=== PATIENT | female | born 1960 | race Caucasian/White ===

== ENCOUNTER 2019-07-29 11:16 | Observation (INO) | payer SELFPAY ==
[2019-07-28 10:00] VITALS: BMI 45.0
[2019-07-29] VITALS (18 sets, daily range): BP systolic 126–179; BP diastolic 69–98; PULSE 60–77; RESP 10–18; TEMP 36.2–36.8; O2SAT 93–100
--- NOTE | 2019-07-29 | XR_ITS ---
WS: [id number] INTRAOPERATIVE LATERAL CERVICAL SPINE HISTORY: Level check for ACDF COMPARISON: 07/29/2019 and 06/28/2019 Lateral radiograph obtained in the OR with a metallic marker indicating the C4-5 disc space, anterior . Patient is intubated. Soft tissue spacers are now present. XR/XR cervical spine 1V 19325 IMPRESSION: Intraoperative planning marker at C4-5 disc level.
--- NOTE | 2019-07-29 | XR_ITS ---
WS: [id number] INTRAOPERATIVE LATERAL CERVICAL SPINE HISTORY: LEVEL CHECK FOR OR COMPARISON: 2018 Lateral radiograph obtained in the OR with a metallic marker indicating the anterior neck at the C5 l evel. Patient is intubated. XR/XR cervical spine 1V 83364 IMPRESSION: Intraoperative planning marker at anterior C5 level.
[2019-07-29] MEDS: sodium chloride 0.9% 1,000 ML 30 ML IV (06:44)
[2019-07-29 06:54] LABS: Glucose Point of Care 129 mg/dL (70-110)
--- NOTE | 2019-07-29 08:50 | SUR.OPER ---
FLOSEAL 10ML INJECTED INJECTED IN C-SPINE WOUND LOT#[id number] EXP 05/27/2020
--- NOTE | 2019-07-29 09:05 | SUR.OPER ---
5931 PT FAMILY NOTIFIED OF PT STATUS ON FAMILY CELL PHONE
--- NOTE | 2019-07-29 10:42 | SUR.PHASEI ---
1033 PT ARRIVED TO PACU FROM OR VIA GURNEY, AIRWAY PATENT, RR EVEN/UNLABORED, SIMPLE MASK APPLIED, DRESSING CDI
--- NOTE | 2019-07-29 10:46 | XR_ITS ---
WS: [id number] Cervical spine, AP and lateral, 07/29/2019, 1059 hours. Clinical Data: postop Comparison: Operating room cervical spine, lateral view, 07/29/2019, 0828 hours. Findings: Patient has had an anterior cervical disc fusion at C5-C6 with an interbody fusion at C5-C6 . There is an old healed fracture of the lateral left clavicle. XR/XR cervical spine 2V* 11370 Impression: Anterior cervical disc fusion at C5-C6.
[2019-07-29] MEDS: lactated ringers 1,000 ML 90 ML IV (13:14)
--- NOTE | 2019-07-29 13:32 | PM.OP ---
Operative Report Post-Operative Note: Date of procedure: 07/29/19 Operative Report: Procedure: DATE OF PROCEDURE: 07/29/2019 DATE OF DICTATION: 07/29/2019 PREOPERATIVE DIAGNOSIS: Intervertebral disc disorder with myelopathy, midcervical region. POSTOPERATIVE DIAGNOSES: 1. Intervertebral disc disorder with myelopathy, midcervical region. 2. Instability of joint. PROCEDURES PERFORMED: 1. C5-C6 anterior cervical discectomy with osteophytectomy. 2. C5-C6 anterior cervical plate and screw fixation (Synthes Vectra system). 3. C5-C6 placement of intervertebral prosthetic device (ACIS ProTi Spacer). 4. C5-C6 anterior cervical fusion, utilizing morselized autograft obtained from the osteophytectomy portions of the procedure. SURGEON: Nando Whipple M.D. ANESTHESIA: General endotracheal. ESTIMATED BLOOD LOSS: 50 milliliters. INDICATIONS FOR PROCEDURES: The patient is a 59-year-old female with symptomatic, radiographically confirmed cervical disc/joint disease and associated neural impingement. Imaging studies demonstrated a dominant neural impingement site at C5-C6, with extension posterior to the C6 vertebral body. She had predominantly left-sided symptoms. Conservative treatment measures had not provided lasting relief. After review of the diagnostic and treatment options with the risks/potential benefits/rationale for each, the patient requested to proceed with surgical decompression/fusion/fixation. DESCRIPTION OF PROCEDURE: After routine preoperative evaluation and informed consent were obtained, the patient was taken to the Operating Room and positioned supine on the operating table. She was placed under general endotracheal anesthesia by Anesthesia personnel. She was fit in the [facility] tongs for the application of in-line cervical traction. A proposed left anterolateral neck transverse skin incision was marked with a sterile skin marker. Regional anatomy and intraoperative radiography were utilized for localization purposes. The area was scrubbed with Betadine and prepped with DuraPrep. Sterile towels and drapes were applied, and an Ioban surgical barrier was placed. The proposed incision site was infiltrated with 1% Xylocaine with Epinephrine. A skin incision was made and carried down into the subcutaneous tissues. The platysma was identified and divided in the direction of its fibers. A plane was dissected just medial to the carotid sheath and lateral to the midline esophagus and trachea. The prevertebral soft tissues were bluntly dissected free of the anterior margin of the cervical spine. Longus coli muscles were freed from their medial attachments, and deep self-retaining retractors were placed. Intraoperative radiography verified the desired surgical level. The C5-C6 interspace was then incised with a #11 blade. Discectomy was accomplished utilizing various curettes and pituitary rongeurs. Anterior marginal osteophytes were resected with Lempert and Kerrison rongeurs. Cartilaginous endplates were stripped free with curettes. Posterior marginal osteophytes were resected with the thin-foot plate Kerrison rongeurs. The medial aspects of the neural foramina were enlarged in a similar manner. Posterior longitudinal ligament was divided and resected as necessary to further the decompression. Prominent marginal osteophytes were noted on the left and, in particular, arising from the superior inferior aspect of the C6 vertebral body. Osteophyte resection was pursued utilizing the Kerrison rongeurs. Completion of the osteophytectomy required resection of the superior aspect of the C6 vertebral body with rongeurs and the Midas Jerardo high-speed drill with samantha cesar. At the completion of the decompression, no residual spinal cord impingement was identified upon probing with the right angle nerve hook. Decompression was felt to be adequate and the disc space was sized. A 10 millimeter ACIS ProTi Lordotic/Medium Spacer was chosen. The Spacer was packed with morselized autograft obtained from the osteophytectomy portions of the procedure. The Spacer was placed within the C5-C6 interspace while in-line cervical traction was applied via the Gomez-Wells tongs. Spacer placement was facilitated by use of the mallet and impaction tools. Once the Spacer was in good position, a Synthes Vectra plate of the desired size was chosen. The plate was secured to the C5 and C6 vertebral bodies with bilateral 4.5 mm x 14 mm self-drilling screws. Final screw tightening was performed, and the screws were noted to engage the locking mechanisms within the plate at each site. The construct was inspected and found to be in good position and secure. The wound was copiously irrigated with sterile saline and antibiotic irrigation. Hemostasis was ensured with the bipolar electrocautery. Wound closure was performed in multiple layers with 2-0 Vicryl Plus simple interrupted closure of the platysma and deep dermis as separate layers. Final skin closure was performed with 4-0 Vicryl Plus in a running subcuticular pattern. Steri-Strips were applied, and a sterile dressing was placed. The patient was released from the [facility] tong and fit in a [place] collar. She was extubated without incident. She was transferred onto the Recovery Room cart in the supine position. The patient tolerated the procedure well. COMPLICATIONS: There were no known complications. COUNTS: All sponge, needle, and instrument counts were correct at the completion of the procedure. Coding Level of Care Code Acute Diet Counselor for Guille Nolasco
--- NOTE | 2019-07-29 16:40 | PM.DCS ---
Discharge Providers Date of Admission: 07/29/19 11:16 Date of Discharge: 07/29/19 Attending Provider at Admission: Sharan Whipple Attending Provider at Discharge: Sharan Whipple Primary Care Provider: Jeannie Shrestha Diagnoses at Discharge Discharge Diagnosis (1) Intervertebral disc disorder of cervical region with myelopathy: Status: Acute (2) Status post cervical spinal fusion: Status: Acute Reason for Visit Reason for Visit: Reason For Visit: C5-C6 disc disease Hospital Course Hospital Course: Patient underwent a C5-C6 ACDFF on 07/29/2019. She tolerated the procedure well. She completed preoperative and postoperative intravenous antibiotic doses, and a physical therapy postoperative spine protocol. She was ambulatory, voiding, and tolerating diabetic diet prior to request discharge home on the afternoon of the day of surgery. Physical Exam Const: COMMON NORMALS: oriented x3 Neck/C-Spine: NECK IMAGES: 1. Surgical site Neuro: COMMON NORMALS: oriented x3 and no focal motor deficits GAIT: Yes normal gait Urinary Catheter Management^: Negrete Latex: Cath Placed During This Visit: no Discharge Data Data Completed and Pending: Completed Studies During Hospitalization Category Date Time Status XR cervical spine 1V 25066 Routine Exams 07/29/19 Completed XR cervical spine 1V 89097 Routine Exams 07/29/19 Completed XR cervical spine 2V* 93034 Routine Exams 07/29/19 10:46 Completed Pending at discharge Category Date Time Status Pathology: Surgic al [PTH] Routine Pth 07/29/19 10:16 Received Labs from last 24 hours 07/29/19 06:38 POC Glucose 129 Vitals: Last Vital Signs Temp 97.7 F 07/29/19 15:22 Pulse 68 07/29/19 15:22 Resp 18 07/29/19 15:22 BP 162/92 07/29/19 15:22 Pulse Ox 95 07/29/19 15:22 Discharge Plan Discharge Patient Disposition: Home, Self-Care Condition: Stable Prescriptions: [place] 7.5-325 mg tablet 1 tab PO Q6H PRN (Reason: pain) Qty: 30 RF: 0 Continued cetirizine 10 mg tablet 10 mg PO DAILY RF: 0 metoprolol tartrate 100 mg tablet 100 mg PO BID RF: 0 glipizide 10 mg tablet 10 mg PO DAILY RF: 0 simvastatin 10 mg tablet 10 mg PO BEDTIME RF: 0 lisinopril 10 mg tablet 10 mg PO DAILY RF: 0 hydrochlorothiazide 25 mg tablet 25 mg PO DAILY RF: 0 ferrous gluconate 324 mg (38 mg iron) tablet 324 mg PO DAILY RF: 0 Victoza 2-Damián 0.6 mg/0.1 mL (18 mg/3 mL) Pen Injector 1.8 mg SUBCUT DAILY RF: 0 Discharge Orders: Discharge Order (Routine); Ordered 07/29/19 Ordered By: Sharan Whipple Referrals: Sharan Whipple MD [Physician] - 08/10/19 11:30 am Discharge Diet: Usual diet Discharge Activity: Limit activity as instructed Activity Restrictions/Additional Instructions: Activity -Cervical fusion: Wear cervical collar 24 hours a day. Change as necessary for showering, shaving, or if it becomes soiled. -No lifting or reaching overhead. - No driving until office followup visit - No lifting/pushing/pulling over 10 pounds - Avoid twisting or bending - Walking is encouraged - Home exercise per physical therapist - You may engage in sexual intercourse at any time as long as it is comfortable for you - Check with your doctor before returning to work\ Notify your doctor if you develop: - temperature of 101.5 degrees F. or higher - redness or swelling of the incision - Foul drainage - increasing pain - increasing numbness or tingling in the arms or legs - New or increasing problems with vision, balance, memory, speaking, nausea or vomiting Hygiene: - Showering is okay - No tub baths or soaking Other: Remove outer bandage 3 days after surgery. If you have paper strips, leave in place until they fall off on their own. If you have stitches, keep your incision dry until the stitches are removed. Your doctor's office is available to answer any questions from 7 AM to 5:00 PM, Friday through at [phone]. After hours, go to the emergency room at [facility] or call 911 for assistance. Discharge Attestations Time Spent in Discharge Care*: less than 30 min Status at Discharge: Cognitive status at discharge: cognitively intact, Behavioral status at discharge: cooperative, Functional status at discharge: independent ambulation Quality Metrics Clinical Quality Measures During this hospital stay, did patient experience: None Coding Level of Care Code Acute Hardware Engineering Manager for Guille Nolasco Diagnoses Intervertebral disc disorder of cervical region with myelopathy M50.00 Status post cervical spinal fusion Z98.1
[2019-07-29 17:14] LABS: Glucose Point of Care 213 mg/dL (70-110)
[2019-07-29] MEDS: docusate sodium 100 mg Capsule PO (17:22)
[2019-07-29] MEDS: metoprolol tartrate 50 mg Tablet 100 MG PO (17:22)
--- NOTE | 2019-07-29 17:29 | PC.NURSE ---
iv IV was taken out intact.
== END 2019-07-29 18:55 | disposition home or self-care (01) ==
LOC: MEDSURG 11:20
PROVIDERS: Admitting Provider Specialist; Family Provider Family Medicine; PCP Family Medicine; Referring Provider Family Medicine; Visit Provider Specialist
PROC: 0RB30ZZ Excision of Cervical Vertebral Disc, Open Approach (ICD-10-PCS; CPT 22551; principal; 2019-07-29 07:00)
DX: M50.022 Cervical disc disorder at C5-C6 level with myelopathy (principal); E11.9 Type 2 diabetes mellitus without complications; I10 Essential (primary) hypertension; E78.5 Hyperlipidemia, unspecified; Z82.49 Family history of ischemic heart disease and other diseases of the circulatory system; Z98.84 Bariatric surgery status
CPT/HCPCS: 20936; 22551; 22853; 36416; 51702; 72020; 72040; 82962; 88304; 96360; 96361; 96365; 97161; 97530; C1713; G0378; J0690; J2001; J2704; J2710; J3010; J3490; J7030; L0172

== ENCOUNTER 2019-08-12 13:33 | Outpatient (CLI) | payer SELFPAY ==
--- NOTE | 2019-08-12 14:26 | XR_ITS ---
WS: [id number] CERVICAL SPINE TECHNIQUE: 3 views of the cervical spine CLINICAL INFORMATION: post-op cervical fusion COMPARISON: None. FINDINGS: Straightening of the normal cervical lordosis. Postoperative changes anterior interbody cervical fusi on C5-6. Hardware appears stable since 2019. Prevertebral soft tissue edema postoperative. Tiny gra nulomas in the lung apices. XR/XR cervical spine 3V* 44003 IMPRESSION: 1. Straightening of the normal cervical lordosis with postoperative C5-C6 ACDF with interbody fusion. 2. Hardware appears in good position unchanged from previous. 3. Expected prevertebral postoperative edema.
== END 2019-08-12 13:34 | disposition home or self-care (01) ==
PROVIDERS: Family Provider Family Medicine; PCP Family Medicine; Visit Provider Licensed Practical Nurse
DX: Z48.89 Encounter for other specified surgical aftercare (principal); Z98.1 Arthrodesis status; G95.19 Other vascular myelopathies
CPT/HCPCS: 72040

== ENCOUNTER 2019-09-09 09:14 | Outpatient (CLI) | payer SELFPAY ==
--- NOTE | 2019-09-09 09:22 | XR_ITS ---
WS: [id number] CERVICAL SPINE TECHNIQUE: 3 views of the cervical spine CLINICAL INFORMATION: post-op ADFF COMPARISON: August 12, 2019 FINDINGS: Straightening of the normal cervical lordosis. Postoperative changes ACDF C5-6. Hardware appears in g ood position. Normal prevertebral soft tissues. Normal C1-C2 articulation. XR/XR cervical spine 3V* 39154 IMPRESSION: Stable postoperative changes ACDF C5-C6.
== END 2019-09-09 09:15 | disposition home or self-care (01) ==
LOC: RADWPI 09:16
PROVIDERS: Family Provider Family Medicine; PCP Family Medicine; Visit Provider Licensed Practical Nurse
DX: Z98.1 Arthrodesis status (principal)
CPT/HCPCS: 72040

== ENCOUNTER 2019-09-28 10:45 | Outpatient (CLI) | payer SELFPAY ==
--- NOTE | 2019-09-28 11:00 | CT_ITS ---
WS: [id number] CT CERVICAL SPINE HISTORY: post op ACDFF TECHNIQUE: Contiguous 2.5 mm axial imaging performed through the entire cervical spine. Sagittal and coronal reformats also performed. All CT scans at [facility] use at least one of these do se optimization techniques: automated exposure control; mA and/or kV adjustment per patient size (inc ludes targeted exams where dose is matched to clinical indication); or iterative reconstruction. DLP: 1677.38 mGycm COMPARISON: 09/09/2019, 02/03/2019 and 06/28/2019. Since the prior MRI, anterior cervical fusion with interbody spacer has been placed at C5-6. No lucen cy around the hardware. The position of the interbody spacer is tilted inferiorly along its posterior aspect but similar to the prior study. No bone fusion across the disc space at this time. The disc s pace height is preserved. Very slight reversal of the normal lordosis centered at C4-5. C2-C3: Small vertebral body osteophytes without stenosis. C3-C4: Normal. C4-C5: Mild osteophytic ridging with mild LEFT foraminal narrowing. C5-C6: Osteophytic ridging with moderate LEFT and mild RIGHT foraminal stenosis and mild central sten osis. C6-C7: Mild osteophytic ridging with mild LEFT foraminal narrowing. C7-T1: Normal. Soft tissues are normal. Lung apices are clear. CT/CT cervical spin wo con* [id number] IMPRESSION: 1. Recent anterior cervical fusion at C5-C6 with interbody spacer. No interval change in appearance since the radiograph of 09/09/2019. 2. Straightening and slight reversal of normal cervical lordosis centered at t he C5-6 level.
== END 2019-09-28 10:46 | disposition home or self-care (01) ==
LOC: RADWPI 10:49
PROVIDERS: Family Provider Family Medicine; PCP Family Medicine; Visit Provider Licensed Practical Nurse
DX: M48.02 Spinal stenosis, cervical region (principal); M25.78 Osteophyte, vertebrae; Z98.1 Arthrodesis status
CPT/HCPCS: 72125

== ENCOUNTER → 2019-10-12 10:17 | Outpatient (BNVA) | payer SELFPAY | PROVIDERS: Family Provider Family Medicine; PCP Family Medicine; Visit Provider Family Medicine | DX: E78.5 Hyperlipidemia, unspecified (principal); E11.9 Type 2 diabetes mellitus without complications; Z79.4 Long term (current) use of insulin; I10 Essential (primary) hypertension | CPT/HCPCS: 80053; 80061; 82044; 83036; 85025 ==

== ENCOUNTER → 2020-02-15 10:57 | Outpatient (BNVA) | payer SELFPAY | PROVIDERS: Family Provider Family Medicine; PCP Family Medicine; Visit Provider Family Medicine | DX: I10 Essential (primary) hypertension (principal); Z13.6 Encounter for screening for cardiovascular disorders; E78.2 Mixed hyperlipidemia; E11.21 Type 2 diabetes mellitus with diabetic nephropathy; Z79.4 Long term (current) use of insulin; D50.9 Iron deficiency anemia, unspecified | CPT/HCPCS: 80053; 80061; 83036; 85025 ==

== ENCOUNTER → 2020-04-04 10:01 | Outpatient (BNVA) | payer OTHER, SELFPAY | PROVIDERS: Family Provider Family Medicine; PCP Family Medicine; Visit Provider Internal Medicine | DX: Z11.59 Encounter for screening for other viral diseases (principal) | CPT/HCPCS: 87635 ==

== ENCOUNTER 2020-04-06 06:33 | Day surgery (SDC) | payer SELFPAY ==
[2020-03-07 09:23] VITALS: BMI 42.0
[2020-04-06 06:54] VITALS: BP 120/89; PULSE 80; RESP 18; TEMP 36.4; O2SAT 99
[2020-04-06] MEDS: sodium chloride 0.9% 1,000 ML 30 ML IV (06:56)
[2020-04-06 07:03] LABS: Glucose Point of Care 175 mg/dL (70-110)
--- NOTE | 2020-04-06 07:28 | ANES.PREANE2 ---
Pre-Anesthetic Assessment Pre-Anesthetic Assessment: Height/Weight: Height 1.6 m Weight 107.501 kg Temp Pulse Resp BP Pulse Ox 97.6 F 80 18 120/89 99 04/06/20 06:54 04/06/20 06:54 04/06/20 06:54 04/06/20 06:54 04/06/20 06:54 Preop Diagnosis: anemia Proposed Procedure: Operation Date: 04/06/20 07:30 Proposed Procedures p EGD/colon with poss biopsy [id number] 55005 D50.9(Not Applicable) - Víctor Perera MD s Colonoscopy(Not Applicable) - Víctor Perera MD Was Beta Archana taken within 24 hours: Yes Last intake: Intake Last Liquid Date 04/05/20 Last Liquid Time 23:00 Last Solid Date 04/05/20 Exam: Pre-Anes Outpt Exam: alert, oriented x 3, clear to auscultation bilaterally and regular rate & rhythm Airway: Submandibular: WNL Cervical ROM: WNL MP: 2 History/ROS: No significant history except as noted Pulmonary: Pulmonary: None reported CV/HEM: CV/HEM: Anemia and HTN : : Chronic renal Insufficiency GI: GI: None reported Metabolic: Metabolic: DM Musc/skel: Musc/skel: OA/DJD (ACDFF 07/2018) Neuropsych: Neuropsych: None reported Anesthetic Plan: ASA status: 2 Anesthesia: Anesthesia Evaluation and MAC Risk of > 500 ml blood loss (7ml/kg in children): No Meds/Allergies Current Medications: Current Medications Generic Name Dose Route Start Last Admin Trade Name Freq PRN Reason Stop Dose Admin Sodium Chloride 1,000 mls @ 30 ml s/hr 04/06/20 06:45 04/06/20 06:56 Sodium Chloride 0.9% IV 30 mls/hr .Q24H MOLINA Administration PFSH Anesthesia PFSH: Medical History Benign essential HTN CKD (chronic kidney disease) stage 3, GFR 30-59 ml/min Hyperlipidemia Tachycardia Type 2 diabetes mellitus, with long-term current use of insulin Surgical History Hx of dilation and curettage Hx of gastric bypass Hx of hysterectomy Status post cervical spinal fusion 07/29/2019 Dr. River Whipple. C5-C6 ACDFF Family History Mother Diabetes Cancer Heart disease Father Cancer Social History Smoking and tobacco status: never smoked Alcohol intake: current Alcohol intake frequency: holidays/special occasions only Lives independently: Yes Household members: none and other Details: roommate Marital status: service: No Current occupational status: employed Current occupation: [employer] History of recent travel: No Data Anesthesia Other Labs: Laboratory Results - last 48 hr 04/06/20 07:00 POC Glucose 175 Cardiac Studies: No Data to Display
--- NOTE | 2020-04-06 08:20 | W.PM.OPSUD ---
Surgery/Procedure H&P Update DATE OF PROCEDURE: April 06, 2020 DATE H&P PERFORMED: 02/29/20 H&P UPDATE INFORMATION: I have reviewed H&P completed within last 30 days, I have examined patient prior to procedure and No changes to prior documentation PREOP DIAGNOSIS: anemia PLANNED PROCEDURE: Operation Date: 04/06/20 07:30 Proposed Procedures p EGD/colon with poss biopsy [id number] 14426 D50.9(Not Applicable) - Víctor Perera MD s Colonoscopy(Not Applicable) - Víctor Perera MD
[2020-04-06 08:49] VITALS: BP 112/76; PULSE 79; RESP 16; TEMP 36.1; O2SAT 98
[2020-04-06 08:58] VITALS: BP 141/84; PULSE 76; RESP 18; O2SAT 98
--- NOTE | 2020-04-13 13:18 | W.PM.OPSFHP ---
Same Day Surgery H&P Indication for Procedure/HPI DATE OF PROCEDURE: April 13, 2020 CHIEF COMPLAINT/INDICATIONFOR SURGICAL PROCEDURE: colonosocpy PREOP DIAGNOSIS: anemia PLANNED PROCEDRUE: Operation Date: 04/06/20 07:30 Proposed Procedures p EGD/colon with poss biopsy [id number] 02379 D50.9(Not Applicable) - Víctor Perera MD s Colonoscopy(Not Applicable) - Víctor Perera MD Medications/Allergies* Home Medications Medication Instructions Recorded Confirmed Type Victoza 2-Damián 1.8 mg SUBCUT DAILY 07/28/19 04/06/20 History Lantus Solostar U-100 Insulin 9 unit SUBCUT DAILY 04/04/20 04/06/20 History Allergies/Adverse Reactions Allergy/AdvReac Type Severity Reaction Status Date / Time bee pollen Allergy Unknown Verified 04/06/20 06:50 lactose Allergy Unknown Verified 04/06/20 06:50 Pertinent History/Comorbid Conditions* Medical History (Updated 02/15/20 @ 09:48 by Jeannie Shrestha DO) Benign essential HTN CKD (chronic kidney disease) stage 3, GFR 30-59 ml/min Hyperlipidemia Tachycardia Type 2 diabetes mellitus, with long-term current use of insulin Surgical History (Updated 04/06/20 @ 08:49 by Víctor Perera MD) H/O esophagogastroduodenoscopy (04/06/20) Hx of dilation and curettage Hx of gastric bypass Hx of hysterectomy Status post cervical spinal fusion 07/29/2019 Dr. River Whipple. C5-C6 ACDFF Status post colonoscopy (04/06/20) repeat in 10 yrs Family History Diabetes Mother Heart disease Mother Cancer Mother Father Social History Smoking and tobacco status: never smoked Alcohol intake: current Alcohol intake frequency: holidays/special occasions only Lives independently: Yes Household members: none and other Details: roommate Marital status: service: No Current occupational status: employed Current occupation: [employer] History of recent travel: No Pertinent Exam Findings alert, oriented x 3 and regular rate & rhythm Recommendations Surgery/Procedure today Coding Level of Care Code Acute Continuity Editor for Guille Nolasco
== END 2020-04-06 09:09 | disposition home or self-care (01) ==
PROVIDERS: PCP Family Medicine; Visit Provider Surgery
PROC: 0DJ08ZZ Inspection of Upper Intestinal Tract, Via Natural or Artificial Opening Endoscopic (ICD-10-PCS; CPT 43235; principal; 2020-04-06 07:30)
PROC: 0DJD8ZZ Inspection of Lower Intestinal Tract, Via Natural or Artificial Opening Endoscopic (ICD-10-PCS; CPT 45378; 2020-04-06 07:30)
DX: D50.9 Iron deficiency anemia, unspecified (principal); D17.5 Benign lipomatous neoplasm of intra-abdominal organs; I12.9 Hypertensive chronic kidney disease with stage 1 through stage 4 chronic kidney disease, or unspecified chronic kidney disease; N18.9 Chronic kidney disease, unspecified; E11.22 Type 2 diabetes mellitus with diabetic chronic kidney disease; M19.90 Unspecified osteoarthritis, unspecified site; Z98.0 Intestinal bypass and anastomosis status
CPT/HCPCS: 12345; 36416; 43235; 45378; 82962; J2704; J7030

== ENCOUNTER → 2020-06-27 09:17 | Outpatient (BNVA) | payer SELFPAY | PROVIDERS: PCP Family Medicine; Visit Provider Family Medicine | DX: D50.9 Iron deficiency anemia, unspecified (principal); E11.21 Type 2 diabetes mellitus with diabetic nephropathy; Z79.4 Long term (current) use of insulin | CPT/HCPCS: 80053; 82728; 83036; 83550; 85025 ==

== ENCOUNTER 2020-07-20 08:10 | Outpatient (CLI) | payer SELFPAY ==
--- NOTE | 2020-07-20 08:23 | US_ITS ---
WS: [id number] RENAL ULTRASOUND HISTORY: CHRONIC KIDNEY DZ-STAGE 3 COMPARISON: None available. TECHNIQUE: 2-D and color Doppler imaging of the kidney submitted. Right kidney: 9.5 cm x 4.5 cm x 5.7 cm. Normal size echogenic kidney. Cortex is normal thickness. No hydronephrosis or mass. Left kidney: 9.6 cm x 4.7 cm x 6.5 cm. Normal size echogenic kidney. Normal cortical thickness. No hydronephrosis or mass. Aorta: Normal. Urinary Bladder: Minimally distended urinary bladder. Peristalsing loop of colon is noted deep in the pelvis. There is significant dilatation suggesting co nstipation. US/US renal BI* [id number] IMPRESSION: 1. Mild chronic medical renal disease. 2. No renal hydronephrosis or mass.
== END 2020-07-20 08:11 | disposition home or self-care (01) ==
PROVIDERS: PCP Family Medicine; Visit Provider Registered Nurse
DX: N18.32 Chronic kidney disease, stage 3b (principal)
CPT/HCPCS: 76770

== ENCOUNTER → 2020-08-28 09:08 | Outpatient (BNVA) | payer SELFPAY | PROVIDERS: PCP Family Medicine; Visit Provider Family Medicine | DX: E78.2 Mixed hyperlipidemia (principal); I10 Essential (primary) hypertension; E11.21 Type 2 diabetes mellitus with diabetic nephropathy; Z79.4 Long term (current) use of insulin | CPT/HCPCS: 80061 ==

== ENCOUNTER → 2020-09-19 11:46 | Outpatient (BNVA) | payer OTHER, SELFPAY | PROVIDERS: PCP Family Medicine; Visit Provider Nurse Practitioner Family | DX: Z20.828 Contact with and (suspected) exposure to other viral communicable diseases (principal) | CPT/HCPCS: 87635 ==

== ENCOUNTER 2020-09-29 15:41 | Outpatient (CLI) | payer SELFPAY ==
--- NOTE | 2020-09-29 15:53 | XR_ITS ---
WS: [id number] CHEST 2 VIEWS HISTORY: covid COMPARISON: 07/26/2019 Lungs: Scattered linear opacifications throughout the mid and lower lungs. These are new since the pr ior CT. Cardiac size: Normal. Mediastinum/Aorta: Normal mediastinum. Bones: Prior anterior cervical fusion. XR/XR chest 2V* [id number] IMPRESSION: Scattered opacifications bilaterally in the mid and lower lungs. Consistent wit h history of Covid 19.
== END 2020-09-29 15:42 | disposition home or self-care (01) ==
PROVIDERS: PCP Family Medicine; Visit Provider Nurse Practitioner Family
DX: U07.1 COVID-19 (principal)
CPT/HCPCS: 71046

== ENCOUNTER → 2020-11-06 08:19 | Outpatient (BNVA) | payer SELFPAY | PROVIDERS: PCP Family Medicine; Visit Provider Family Medicine | DX: N18.30 Chronic kidney disease, stage 3 unspecified (principal); I10 Essential (primary) hypertension; E78.5 Hyperlipidemia, unspecified; E11.9 Type 2 diabetes mellitus without complications | CPT/HCPCS: 80069; 82306; 82310; 82570; 83970; 84156; 85025 ==

== ENCOUNTER → 2020-11-28 08:31 | Outpatient (BNVA) | payer SELFPAY | PROVIDERS: PCP Family Medicine; Visit Provider Family Medicine | DX: E11.21 Type 2 diabetes mellitus with diabetic nephropathy (principal); Z79.4 Long term (current) use of insulin | CPT/HCPCS: 80053; 82043; 83036 ==

== ENCOUNTER → 2021-01-02 09:15 | Outpatient (BNVA) | payer SELFPAY | PROVIDERS: PCP Family Medicine; Visit Provider Family Medicine | DX: E11.21 Type 2 diabetes mellitus with diabetic nephropathy (principal); Z79.4 Long term (current) use of insulin; L65.9 Nonscarring hair loss, unspecified; M79.602 Pain in left arm; G89.29 Other chronic pain | CPT/HCPCS: 84443 ==

== ENCOUNTER 2021-01-22 07:29 | Outpatient (RCR) | payer SELFPAY | END 2021-03-06 23:00 | disposition home or self-care (01) | LOC: SPT 07:29 | PROVIDERS: PCP Family Medicine; Referring Provider Family Medicine; Visit Provider Family Medicine | DX: M79.602 Pain in left arm (principal); G89.29 Other chronic pain | CPT/HCPCS: 97110; 97161 ==

== ENCOUNTER 2021-01-25 06:00 | Outpatient (RCR) | payer SELFPAY | END 2021-02-24 23:59 | disposition home or self-care (01) | LOC: SPT 06:00 | PROVIDERS: PCP Family Medicine; Referring Provider Family Medicine; Visit Provider Family Medicine | DX: M79.602 Pain in left arm (principal); G89.29 Other chronic pain | CPT/HCPCS: 97110 ==

== ENCOUNTER → 2021-02-23 10:01 | Outpatient (BNVA) | payer SELFPAY | PROVIDERS: PCP Family Medicine; Visit Provider Family Medicine | DX: E11.21 Type 2 diabetes mellitus with diabetic nephropathy (principal); Z79.4 Long term (current) use of insulin; M79.602 Pain in left arm; G89.29 Other chronic pain | CPT/HCPCS: 80053; 83036 ==

== ENCOUNTER 2021-02-25 06:00 | Outpatient (RCR) | payer SELFPAY | END 2021-03-27 23:59 | disposition home or self-care (01) | LOC: SPT 06:00 | PROVIDERS: PCP Family Medicine; Referring Provider Family Medicine; Visit Provider Family Medicine | DX: M79.602 Pain in left arm (principal); G89.29 Other chronic pain | CPT/HCPCS: 97110 ==

== ENCOUNTER → 2021-03-23 09:37 | Outpatient (BNVA) | payer SELFPAY | PROVIDERS: PCP Family Medicine; Visit Provider Family Medicine | DX: E11.21 Type 2 diabetes mellitus with diabetic nephropathy (principal); I10 Essential (primary) hypertension; Z79.4 Long term (current) use of insulin; N18.30 Chronic kidney disease, stage 3 unspecified | CPT/HCPCS: 80048 ==

== ENCOUNTER → 2021-05-10 08:50 | Outpatient (BNVA) | payer SELFPAY | PROVIDERS: PCP Family Medicine; Visit Provider Internal Medicine Nephrology | DX: I10 Essential (primary) hypertension (principal); N18.30 Chronic kidney disease, stage 3 unspecified; E78.5 Hyperlipidemia, unspecified | CPT/HCPCS: 80069; 82043; 82310; 83970; 85025 ==

== ENCOUNTER → 2021-06-15 09:12 | Outpatient (BNVA) | payer SELFPAY | PROVIDERS: PCP Family Medicine; Visit Provider Family Medicine | DX: E11.21 Type 2 diabetes mellitus with diabetic nephropathy (principal); Z79.4 Long term (current) use of insulin | CPT/HCPCS: 83036 ==

== ENCOUNTER → 2021-09-28 11:42 | Outpatient (BNVA) | payer SELFPAY | PROVIDERS: PCP Family Medicine; Visit Provider Family Medicine | DX: E11.21 Type 2 diabetes mellitus with diabetic nephropathy (principal); Z79.4 Long term (current) use of insulin | CPT/HCPCS: 80048; 83036 ==

== ENCOUNTER → 2022-02-15 11:57 | Outpatient (BNVA) | payer SELFPAY | PROVIDERS: PCP Family Medicine; Visit Provider Family Medicine | DX: E11.21 Type 2 diabetes mellitus with diabetic nephropathy (principal); Z79.4 Long term (current) use of insulin | CPT/HCPCS: 80053; 83036 ==

== ENCOUNTER → 2022-06-05 08:48 | Outpatient (BNVA) | payer SELFPAY | PROVIDERS: PCP Family Medicine; Visit Provider Internal Medicine Nephrology | DX: N18.30 Chronic kidney disease, stage 3 unspecified (principal) | CPT/HCPCS: 80069; 82043; 82306; 82310; 83970; 85025 ==

== ENCOUNTER → 2022-08-20 10:50 | Outpatient (BNVA) | payer SELFPAY | PROVIDERS: PCP Family Medicine; Visit Provider Family Medicine | DX: N89.8 Other specified noninflammatory disorders of vagina (principal) | CPT/HCPCS: 87070; 87205 ==

== ENCOUNTER → 2023-06-17 08:21 | Outpatient (BNVA) | payer SELFPAY | PROVIDERS: PCP Family Medicine; Visit Provider Family Medicine | DX: N18.32 Chronic kidney disease, stage 3b (principal) | CPT/HCPCS: 80069; 82043; 82306; 82310; 83970; 85025 ==

== ENCOUNTER → 2023-07-07 09:17 | Outpatient (BNVA) | payer SELFPAY | PROVIDERS: PCP Family Medicine; Visit Provider Family Medicine | DX: E11.21 Type 2 diabetes mellitus with diabetic nephropathy (principal); Z79.4 Long term (current) use of insulin; F33.1 Major depressive disorder, recurrent, moderate | CPT/HCPCS: 80053; 83036 ==

== ENCOUNTER 2023-10-11 02:12 | Emergency (ER) | payer SELFPAY ==
--- NOTE | 2023-10-11 01:20 | ECG_ITS ---
[facility] Test Date: 2023-10-11 Pat Name: Iris Chaney Department: Room: Gender: Female Home Specialist: : 1960 Requested By: Dakota Vargas Order Number: [id number] [place] MD: Raymond Mtz M.D. Measurements Intervals [place] Rate: 125 P: 0 TX: 0 QRS: -28 QRSD: 96 T: 120 QT: 251 QTc: 363 Interpretive Statements ATRIAL FLUTTER/TACHYCARDIA WITH RAPID VENTRICULAR RESPONSE INCOMPLETE RIGHT BUNDLE BRANCH BLOCK [90+ ms QRS DURATION, TERMINAL R IN V1/V2, 40+ ms S IN I/aVL/V4/V5/V6] LEFT VENTRICULAR HYPERTROPHY AND ST-T CHANGE [VOLTAGE CRITERIA PLUS ST/T ABNORMALITY] POSSIBLE SEPTAL MYOCARDIAL INFARCTION , OF INDETERMINATE AGE [30 ms Q WAVE IN V1/V2] ST DEPRESSION, CONSIDER SUBENDOCARDIAL INJURY [0.1+ mV ST DEPRESSION] No previous ECG available for comparison Electronically Signed On 10-12-2023 21:45:39 CDT by Raymond Mtz M.D. [id number]
[2023-10-11 02:12] VITALS: BP 196/136; PULSE 126; RESP 15; TEMP 36.3; O2SAT 100; BMI 32.5
--- NOTE | 2023-10-11 02:15 | CTR_ITS ---
PROCEDURE INFORMATION: Exam: CT Cervical Spine Without Contrast Exam date and time: 10/11/2023 2:41 AM Age: 63 years old Clinical indication: Injury or trauma; Blunt trauma; Prior surgery; Surgery date: 6+ months; Surgery type: Cervical fusion; Patient HX: EMS arrival for fall. Patient admits to ETOH and does not remember fall. Friends found her laying on the ground. Laceration to forhead. ; Additional info: Trauma/fall TECHNIQUE: Imaging protocol: Computed tomography of the cervical spine without contrast. Radiation optimization: All CT scans at this facility use at least one of these dose optimization techniques: automated exposure control; mA and/or kV adjustment per patient size (includes targeted exams where dose is matched to clinical indication); or iterative reconstruction. COMPARISON: CT cervical spin wo con* [id number] 09/28/2019 10:57 AM RADIATION DOSE METRICS: Total DLP (mGy-cm): 525.76 FINDINGS: Bones/joints: Lower cervical spine anterior fusion hardware and disc replacement without acute surgical complication. Scattered degenerative change of the visualized osseous structures. Lungs: Lung apices are normal. Soft tissues: Unremarkable. CT/CT cervical spin wo con* [id number] IMPRESSION: 1. No acute or aggressive osseous abnormality. 2. No significant posttraumatic change.
--- NOTE | 2023-10-11 02:15 | CTR_ITS ---
PROCEDURE INFORMATION: Exam: CT Head Without Contrast Exam date and time: 10/11/2023 2:38 AM Age: 63 years old Clinical indication: Injury or trauma; Blunt trauma (contusions or hematomas) and laceration; Without residual foreign body; Forehead; Patient HX: EMS arrival for fall. Patient admits to ETOH and does not remember fall. Friends found her laying on the ground. Laceration to forhead. ; Additional info: Trauma/fall TECHNIQUE: Imaging protocol: Computed tomography of the head without contrast. Radiation optimization: All CT scans at this facility use at least one of these dose optimization techniques: automated exposure control; mA and/or kV adjustment per patient size (includes targeted exams where dose is matched to clinical indication); or iterative reconstruction. COMPARISON: CT cervical spin wo con* [id number] 09/28/2019 10:57 AM RADIATION DOSE METRICS: Total DLP (mGy-cm): 1039.04 FINDINGS: Brain: Normal. No hemorrhage. Unremarkable white matter. No mass effect. Cerebral ventricles: No ventriculomegaly. Pituitary gland and sella: Partially empty sella. Paranasal sinuses: Multichamber sinus mucosal thickening. Mild hyperostosis of the frontal bone. Mastoid air cells: Visualized mastoid air cells are well aerated. Bones/joints: Bilateral parietal bone foramina, small. Soft tissues: Unremarkable. Vasculature: Diminutive transverse sinuses. Other findings: [id number] calcified anterior intracranial atherosclerotic disease. CT/CT head wo con* [id number] IMPRESSION: 1. No acute intracranial findings. 2. Partially empty sella, diminutive transverse sinuses. Findings can be seen in pseudotumor cerebri, correlate with clinical history and laboratory values for possible underlying pituitary dysfunction.
[2023-10-11 02:37] LABS: Basophils % 0.3 %; Eosinophils # 0.2 10^3/uL (0.0-0.8); Eosinophils % 2.3 %; Hematocrit 37.7 % (36-47); Lymphocytes % 41.3 %; Mean Corpuscular HGB Conc 34.2 g/dL (30-55); Mean Corpuscular Hemoglobin 28.9 pg (27-33); Mean Corpuscular Volume 84.5 fl (85-98); Mean Platelet Volume 9.6 fL (7.4-10.4); Monocytes # 0.4 10^3/uL (0.2-0.9); Monocytes % 5.6 %; Neutrophils # 3.71 10^3/uL (1.8-7.7); Neutrophils % 50.4 %; Nucleated Red Blood Cells % 0 %; Platelet Count 206 10^3/cmm (157-399); Red Blood Count 4.46 10^6/uL (3.85-5.65); Red Cell Distribution Width 13.3 % (12.1-15.1); White Blood Count 7.36 10^3/uL (3.29-11.43)
[2023-10-11] MEDS: sodium chloride 0.9% 1,000 ML 999 ML IV (02:42)
[2023-10-11] MEDS: lidocaine-epi 1% 20 mL INJ INJECTION (02:43)
[2023-10-11 02:45] LABS: INR 0.93 (0.8-1.2)
[2023-10-11 02:50] LABS: Alanine Aminotransferase 20 U/L (0-33); Alcohol Level 150 mg/dL (0-10); Alkaline Phosphatase 168 U/L (35-105); Anion Gap 18.2 (5-19); Aspartate Amino Transferase 21 U/L (0-32); Blood Urea Nitrogen 14 mg/dL (8-23); Calcium 8.5 mg/dL (8.5-10.5); Carbon Dioxide 22 mmol/L (22-29); Chloride 99 mmol/L (98-107); Creatinine Clr Calc Pharmacy 65.4746; Globulin 3.1 g/dL (1.3-4.6); Glomerular Filtration Rate 63.2 mL/min (90-130); Glucose 438 mg/dL (65-115); Osmolality Calculated 301 mOsm/kg (285-295); Potassium 3.2 mmol/L (3.5-5.1); Sodium 136 mmol/L (136-145); Total Bilirubin 0.2 mg/dL (0.15-1.2); Total Protein 7.1 g/dL (6.6-8.7)
[2023-10-11] MEDS: labetalol 5 mg/mL SDV 20mL 10 MG IVP (02:55)
[2023-10-11 02:56] VITALS: BP 182/120; PULSE 106; RESP 14; O2SAT 98
[2023-10-11 02:59] LABS: Add Urine Microscopic? YES; Bilirubin Urine Neg (Negative); Blood Urine 3+ (Negative); Glucose Urine UA 4+ (Normal); Ketones Urine Negative (Negative); Leukocyte Esterase Urine Negative (Negative); Nitrate Urine Negative (Negative); Protein Urine Neg (Negative); Specific Gravity, Urine 1.005 (1.005-1.030); Urine Appearance Clear (CLEAR); Urine Color Yellow (Yellow); Urobilinogen Urine Neg (Negative); pH Urine 5 (5-7)
[2023-10-11 03:05] LABS: Bacteria Urine TRACE /hpf; RBC Urine 0-4 /hpf (0-2); Squamous Epithelial Cell Urine 0-4 /hpf (0-5); WBC Urine 0-4 /hpf (0-5)
[2023-10-11 03:08] LABS: Amphetamines Screen Urine Negative (Negative); Barbiturates Screen Urine Negative (Negative); Benzodiazepines Screen Urine Negative (Negative); Cocaine Screen Urine Negative (Negative); Opiate Screen Urine Negative (Negative); PCP Screen Urine Negative (Negative); THC Screen Urine Negative (Negative)
[2023-10-11 03:49] VITALS: BP 171/114; O2SAT 93
[2023-10-11] MEDS: hyDRALAzine 20 mg/mL INJ 1 mL IVP (03:49)
--- NOTE | 2023-10-11 04:07 | ED_ITS ---
HPI - Fall 2 General: Chief Complaint: Fall Stated Complaint: fall Time Seen by Provider: 10/11/23 02:14 History of Present Illness: 63-year-old female presents emergency de partment via EMS personnel after an accidental fall while she was at a constitution party with her friends. She states that she has consumed a moderate amount of alcohol had an accidental slip and fall and hit her head on a metal cup. Family members and friends state there was no loss of consciousness. She does have a laceration to the middle of her forehead that is approximately 8 cm in length and 0.25 mm depth. Associated symptoms-after fall: Reports headache(s) Review of Systems 2 General: Reports: 10 or more systems reviewed and unremarkable except in HPI and below Skin/Breast: Reports: other (Laceration) Neuro: Reports: headache(s) PFSH ED 2 PFSH: Medical History Obesity (BMI 35.0-39.9 without comorbidity) URI with cough and congestion History of 2019 novel coronavirus disease (COVID-19) Tachycardia CKD (chronic kidney disease) stage 3, GFR 30-59 ml/min Benign essential HTN Hyperlipidemia Type 2 diabetes mellitus, with long-term current use of insulin Surgical History H/O esophagogastroduodenoscopy (04/06/20) Status post colonoscopy (04/06/20) repeat in 10 yrs Hx of gastric bypass Hx of hysterectomy Hx of dilation and curettage Status post cervical spinal fusion 07/29/2019 Dr. River Whipple. C5-C6 ACDFF Family History Mother Diabetes Cancer Heart disease Father Cancer Social History Smoking and tobacco/nicotine status: never used tobacco/nicotine Alcohol intake: current Alcohol intake frequency: holidays/special occasions only Substance/Drug Use: never Lives independently: Yes Household members: none and other Details: roommate Marital status: service: No Current occupational status: employed Current occupation: [employer] Physical Exam 2 Narrative: EXAM NARRATIVE: Constitutional: the patient appears well nourished and with normal development. Vital signs reviewed as documented. HENMT: 8 cm curvilinear laceration to the middle of the forehead. External ears normal appearance without drainage. Nose without drainage, normal appearance. Mucus membranes moist. Neck is supple, No jugular venous distension, trachea is midline, no appreciable carotid bruits. No lymphadenopathy. No meningeal signs. Flexion, extension and lateral rotation is without pain. Eyes: Pupils are equal, round, reactive to light and accommodation. No scleral icterus. Extra-ocular movement are intact. Thorax is symmetrical and with equal rise and fall with respirations. Resp: Lungs are clear to auscultation. No wheezes, rales, crackles or ronchi at present. Cardio: Regular rate and rhythm. Positive S1, S2. No appreciable murmurs, rubs or gallops. GI: Abdominal exam reveals normal bowel sounds to all quadrants. No organomegaly. No obvious palpable masses noted. No hepatomegally appreciated. Soft, non-tender to palpation. Extremity: Extremities are non-edematous and both femoral and pedal pulses are 2+ and equal bilaterally. Moves all extremities well, sensation in all extremities. Neuro: Alert and oriented x4, person, place, time and situation. Cranial nerves II through XII are grossly intact, there is no focal neurological deficits that I can appreciate at present. Sensation intact to all extremities. 2-point discrimination intact. Light touch intact to all extremities. Motor strength in the upper and lower extremities are equal and bilateral 5/5. Psych: Cooperative, calm, normal thought process, appropriate judgment. Skin: No lesions, rashes. No gross abnormalities noted. Back: Symmetrical, no obvious deformity, No CVA tenderness Course 2 ED course: Laceration Repair: The patient verbally consents to a wound repair. A time out was performed. Side and sight are verified. Patient identification is verified. The wound is anesthetized with- 5ml of 1% Lidoaine with epinephrine It is then copiously irrigated with sterile saline and cleansed with saline and betadine mixture. The wound measures [-*8* cm-] in length by [-*0.25 mm-] in depth. It is approximated using simple interrupted sutures with [-4-0-] Ethilon. Total number [-*8*-]. Good approximation is achieved. Hemostasis is maintained. It is dressed with antibiotic ointment and a bulky dressing. Follow-up instructions were provided to the patient. The patient was educated on the signs of infection and return precautions. The patient was advised to follow-up with a medical provider in 10-14 days to have the wound evaluated for possible suture removal. Vital Signs: Vital signs: Vital Signs Temperature 97.4 F L 10/11/23 02:12 Pulse Rate 106 H 10/11/23 02:56 Respiratory Rate 14 10/11/23 02:56 Blood Pressure 171/114 10/11/23 03:49 Pulse Oximetry 93 10/11/23 03:49 Oxygen Delivery Me thod Room Air 10/11/23 03:49 MDM - Fall Medical Decision Making Physical exam completed and documented CT scan of the head and cervical spine demonstrate no acute intracranial injury. Laceration repair as noted. Patient does have uncontrolled hypertension I have provided her antihypertensive medications with significant improvement and resolution of her elevated blood pressure. Medical Records I reviewed the patient's medical records. Lab Data I reviewed the patient's lab results. 10/11/23 02:27 10/11/23 02:27 Radiology Impressions Cervical Spine CT 10/11/23 02:15 IMPRESSION: 1. No acute or aggressive osseous abnormality. 2. No significant posttraumatic change. Head CT 10/11/23 02:15 IMPRESSION: 1. No acute intracranial findings. 2. Partially empty sella, diminutive transverse sinuses. Findings can be seen in pseudotumor cerebri, correlate with clinical history and laboratory values for possible underlying pituitary dysfunction. Laboratory Results WBC 7.36 10^3/uL (3.29-11.43) 10/11/23 02:27 RBC 4.46 10^6/uL (3.85-5.65) 10/11/23 02:27 Hgb 12.90 g/dL (11.27-16.99) 10/11/23 02:27 Hct 37.7 % (36-47) 10/11/23 02:27 MCV 84.5 fl (85-98) L 10/11/23 02:27 MCH 28.9 pg (27-33) 10/11/23 02:27 MCHC 34.2 g/dL (30-55) 10/11/23 02:27 RDW 13.3 % (12.1-15.1) 10/11/23 02:27 Plt Count 206 10^3/cmm (157-399) 10/11/23 02: MPV 9.6 fL (7.4-10.4) 10/11/23 02: Neut % (Auto) 50.4 % 10/11/23 02: Lymph % (Auto) 41.3 % 10/11/23 02: [place] % (Auto) 5.6 % 10/11/23 02: Eos % (Auto) 2.3 % 10/11/23 02: Baso % (Auto) 0.3 % 10/11/23 02: Neut # (Auto) 3.71 10^3/uL (1.8-7.7) 10/11/23 02: Lymph # (Auto) 3.0 10^3/uL (0.8-4.8) 10/11/23 02: [place] # (Auto) 0.4 10^3/uL (0.2-0.9) 10/11/23 02: Eos # (Auto) 0.2 10^3/uL (0.0-0.8) 10/11/23 02: Baso # (Auto) 0.0 10^3/uL (0.0-0.1) 10/11/23 02: Nucleated RBC % (auto) 0 % 10/11/23 02: Nucleated RBCs # 0.0 /100WBC 10/11/23 02: PT 12.70 SECONDS (12.1-14.9) 10/11/23 02: INR 0.93 (0.8-1.2) 10/11/23 02:27 Sodium 136 mmol/L (136-145) 10/11/23 02: Potassium 3.2 mmol/L (3.5-5.1) L 10/11/23 02: Chloride 99 mmol/L (98-107) 10/11/23 02: Carbon Dioxide 22 mmol/L (22-29) 10/11/23 02: Anion Gap 18.2 (5-19) 10/11/23 02:27 BUN 14 mg/dL (8-23) 10/11/23 02:27 Creatinine 0.9 mg/dL (0.5-0.9) 10/11/23 02:27 GFR Calculation 63.2 mL/min (90-130) L 10/11/23 02:27 Glucose 438 mg/dL (65-115) H 10/11/23 02:27 Calculated Osmolality 301 mOsm/kg (285-295) H 10/11/23 02:27 Calcium 8.5 mg/dL (8.5-10.5) 10/11/23 02:27 Total Bilirubin 0.2 mg/dL (0.15-1.2) 10/11/23 02:27 AST 21 U/L (0-32) 10/11/23 02:27 ALT 20 U/L (0-33) 10/11/23 02:27 Alkaline Phosphatase 168 U/L (35-105) H 10/11/23 02:27 Total Protein 7.1 g/dL (6.6-8.7) 10/11/23 02:27 Albumin 4.0 g/dL (3.5-5.2) 10/11/23 02:27 Globulin 3.1 g/dL (1.3-4.6) 10/11/23 02:27 Urine Color Yellow (Yellow) 10/11/23 02:48 Urine Appearance Clear (CLEAR) 10/11/23 02:48 Urine pH 5 (5-7) 10/11/23 02:48 Ur Specific [place] 1.005 (1.005-1.030) 10/11/23 02:48 Urine Protein Neg (Negative) 10/11/23 02:48 Urine Glucose (UA) 4+ (Normal) H 10/11/23 02:48 Urine Ketones Negative (Negative) 10/11/23 02:48 Urine Blood 3+ (Negative) H 10/11/23 02:48 Urine Nitrate Negative (Negative) 10/11/23 02:48 Urine Bilirubin Neg (Negative) 10/11/23 02:48 Urine Urobilinogen Neg mg/dL (Negative) 10/11/23 02:48 Ur Leukocyte Esterase Negative (Negative) 10/11/23 02:48 Urine RBC 0-4 /hpf (0-2) H 10/11/23 02:48 Urine WBC 0-4 /hpf (0-5) H 10/11/23 02:48 Ur Squamous Epith Cells 0-4 /hpf (0-5) H 10/11/23 02:48 Amorphous Sediment Not Reportable 10/11/23 02:48 Urine Bacteria Trace /hpf (NONE) 10/11/23 02:48 Urine Opiates Screen Negative ng/mL (Negative) 10/11/23 02:48 Ur Barbiturates Screen Negative ng/mL (Negative) 10/11/23 02:48 Ur Phencyclidine Scrn Negative ng/mL (Negative) 10/11/23 02:48 Ur Amphetamines Screen Negative ng/mL (Negative) 10/11/23 02:48 U Benzodiazepines Scrn Negative ng/mL (Negative) 10/11/23 02:48 Urine Cocaine Screen Negative ng/mL (Negative) 10/11/23 02:48 U Marijuana (THC) Screen Negative ng/mL (Negative) 10/11/23 02:48 Ethyl Alcohol 150 mg/dL (0-10) H 10/11/23 02:27 All radiology interpretation(s) finalized by discharge Discharge Plan Discharge Patient Disposition: Home Clinical Impression: Laceration of scalp, Accidental fall, Hypertension, uncontrolled, Alcohol intoxication Condition: Stable Prescriptions: No Action chlorthalidone 25 mg tablet 12.5 mg PO DAILY tramadol 50 mg tablet 50 mg PO Q4H PRN (Reason: pain) Qty: 20 0RF fluticasone propionate [Flonase Allergy Relief] 50 mcg/actuation spray,suspension 2 spray intranasal DAILY Qty: 16 0RF Rx Instructions: administer into each nostril insulin lispro [Humalog KwikPen Insulin] 100 unit/mL insulin pen See Rx Instructions SUBCUT TID Rx Instructions: sliding scale subcutaneously three times daily; Please dispense needle tips as well, based on sliding scale 340 b gabapentin 300 mg capsule 300 mg PO .po q hs Qty: 90 1RF albuterol sulfate [ProAir HFA] 90 mcg/actuation HFA aerosol inhaler 2 puff inhalation 6XD PRN (Reason: shortness of breath or wheezing) Qty: 8.5 0RF Lantus Solostar U-100 Insulin 100 unit/mL (3 mL) insulin pen 24 unit SUBCUT DAILY Qty: 15 1RF potassium chloride 10 mEq capsule, extended release 10 meq PO DAILY cetirizine 10 mg tablet 10 mg PO DAILY Qty: 30 5RF metronidazole 0.75 % (37.5mg/5 gram) gel 1 appful vaginal .nightly 5 Days Qty: 70 0RF clindamycin phosphate 2 % cream 1 appful vaginal DAILY 7 Days Qty: 40 0RF Rx Instructions: 5 grams per vaginal nightly for 7 days Farxiga 10 mg tablet See Rx Instructions .ROUTE .COMPLEX Qty: 30 1RF Dose Instruction: TAKE 1 TABLET BY MOUTH EVERY DAY Rx Instructions: TAKE 1 TABLET BY MOUTH EVERY DAY fluoxetine 20 mg capsule See Rx Instructions .ROUTE .COMPLEX Qty: 30 1RF Dose Instruction: take 1 capsule BY MOUTH EVERY DAY Rx Instructions: take 1 capsule BY MOUTH EVERY DAY simvastatin 10 mg tablet See Rx Instructions .ROUTE .COMPLEX Qty: 30 1RF Dose Instruction: TAKE 1 TABLET BY MOUTH AT BEDTIME Rx Instructions: TAKE 1 TABLET BY MOUTH AT BEDTIME metoprolol tartrate 50 mg tablet See Rx Instructions .ROUTE .COMPLEX Qty: 60 1RF Dose Instruction: TAKE 1 TABLET BY MOUTH TWICE DAILY Rx Instructions: TAKE 1 TABLET BY MOUTH TWICE DAILY Discharge Orders: Discharge ED (Routine); Ordered 10/11/23 Ordered By: Dakota Vargas Referrals: Jeannie Shrestha DO [Primary Care Provider] - Discharge Diet: Usual diet Discharge Activity: Resume usual activity Patient Instructions: Opioid Safety, Pain Management Activity Restrictions/Additional Instructions: Activity Restrictions/Additional Instructions: Thank you for choosing [facility] for your healthcare needs today. Please realize that you were seen in the Emergency Department and that we are providing you with an emergency medical screening exam and this may not be a complete and all inclusive of all the testing and or medical work-up that you may need to determine your ailment or severity of your illness. It is very important that you follow-up as instructed with your Primary care provider or Specialist for additional evaluation and to discuss your medical treatment plan. You may return to the Emergency Department should you have concerns or if your condition changes or worsens in any way. Coding Level of Care Code ED Public Relations Consultant for Guille Nolasco
[2023-10-11 04:58] VITALS: BP 129/96; PULSE 110; O2SAT 99
[2023-10-11] MEDS: ondansetron 4 MG Tablet 8 MG PO (04:58)
== END 2023-10-11 05:05 | disposition home or self-care (01) ==
PROVIDERS: Emergency Provider Internal Medicine; PCP Family Medicine
DX: S01.81XA Laceration without foreign body of other part of head, initial encounter (principal); W01.198A Fall on same level from slipping, tripping and stumbling with subsequent striking against other object, initial encounter; F10.129 Alcohol abuse with intoxication, unspecified; Y90.6 Blood alcohol level of 120-199 mg/100 ml; Z79.4 Long term (current) use of insulin; I12.9 Hypertensive chronic kidney disease with stage 1 through stage 4 chronic kidney disease, or unspecified chronic kidney disease; E11.22 Type 2 diabetes mellitus with diabetic chronic kidney disease; N18.9 Chronic kidney disease, unspecified; E78.5 Hyperlipidemia, unspecified
CPT/HCPCS: 12015; 70450; 72125; 80053; 80306; 80307; 81001; 85025; 85610; 93005; 96361; 96374; 96375; 99285; J0360; J3490; J7030; Q0162

== ENCOUNTER → 2023-10-17 09:25 | Outpatient (BNVA) | payer SELFPAY | PROVIDERS: PCP Family Medicine; Visit Provider Family Medicine | DX: E11.21 Type 2 diabetes mellitus with diabetic nephropathy (principal); Z79.4 Long term (current) use of insulin; I10 Essential (primary) hypertension; E78.2 Mixed hyperlipidemia | CPT/HCPCS: 80053; 83036 ==

== ENCOUNTER → 2024-01-23 08:44 | Outpatient (BNVA) | payer SELFPAY | PROVIDERS: PCP Family Medicine; Visit Provider Family Medicine | DX: E11.21 Type 2 diabetes mellitus with diabetic nephropathy (principal); Z79.4 Long term (current) use of insulin; Z13.6 Encounter for screening for cardiovascular disorders | CPT/HCPCS: 80053; 80061; 83036 ==

== ENCOUNTER → 2024-03-10 11:03 | Outpatient (BNVA) | payer SELFPAY | PROVIDERS: PCP Family Medicine | DX: R09.81 Nasal congestion (principal) | CPT/HCPCS: 87426 ==

== ENCOUNTER → 2024-06-11 11:33 | Outpatient (BNVA) | payer SELFPAY | PROVIDERS: PCP Family Medicine; Visit Provider Family Medicine | DX: E11.21 Type 2 diabetes mellitus with diabetic nephropathy; Z79.4 Long term (current) use of insulin | CPT/HCPCS: 80053; 83036 ==

== ENCOUNTER 2024-07-20 14:24 | Emergency (ER) | payer SELFPAY ==
[2024-07-20 14:28] VITALS: BP 207/122; PULSE 89; RESP 18; TEMP 36.5; O2SAT 98; BMI 36.6
--- NOTE | 2024-07-20 14:36 | XRR_ITS ---
PROCEDURE INFORMATION: Exam: XR Left Hip Exam date and time: 07/20/2024 2:43 PM Age: 64 years old Clinical indication: Injury or trauma; Fall; Blunt trauma (contusions or hematomas); Left; Hip TECHNIQUE: Imaging protocol: Radiologic exam of the left hip. Views: 2 or 3 views hip with pelvis when performed. COMPARISON: US renal BI* [id number] 07/20/2020 8:25 AM FINDINGS: Bones/joints: There is bilateral joint space narrowing and osteophyte formation. No acute fracture or dislocation. There is osteopenia. Soft tissues: Unremarkable. XR/XR hip LT 2-3V wo/w pel* [id number] IMPRESSION: There is no evidence for acute fracture or malalignment.
[2024-07-20 14:38] VITALS: BP 228/135; PULSE 89; RESP 18; O2SAT 99
--- NOTE | 2024-07-20 14:49 | ED_ITS ---
HPI - Extremity Problem General: Chief complaint: Extremity Injury, Lower Stated complaint: Lt leg pain Time Seen by Provider: 07/20/24 14:36 Source: patient Mode of arrival: ambulatory Limitations: no limitations History of Present Illness: 64-year-old female states she had a fall roughly 3 weeks ago states she had a ground-level fall onto her left hip states she been having left hip pain since then it has been increasing states is much worse when she tries to ambulate denies any other injuries rates her pain a 7 out of 10 currently. Associated symptoms: Deny chest pain, fever(s) or rash Related Data Home Medications Medication Instructions Recorded Confirmed insulin glargine 100 unit/mL (3 30 unit SUBCUT BID 07/06/24 07/20/24 mL) subcutaneous pen (Lantus Solostar U-100 Insulin) Previous Rx's Medication Instructions Recorded cetirizine 10 mg tablet 10 mg PO DAILY #30 tabs 02/15/20 dapagliflozin propanediol 10 mg 10 mg PO DAILY #30 tabs 03/26/24 tablet (Farxiga) fluoxetine 40 mg capsule 40 mg PO DAILY #30 caps 03/26/24 gabapentin 300 mg capsule 300 mg PO .po q hs #30 caps 03/26/24 metoprolol tartrate 100 mg tablet 100 mg PO BID #60 tabs 03/26/24 simvastatin 10 mg tablet 10 mg PO DAILY #30 tabs 03/26/24 tramadol 50 mg tablet 50 mg PO Q4H PRN pain #20 tabs 06/03/24 duloxetine 30 mg capsule,delayed 30 mg PO DAILY #90 caps 07/06/24 release (Cymbalta) furosemide 20 mg tablet 20 mg PO .qPM #90 tabs 07/06/24 potassium chloride 10 mEq 10 meq PO DAILY #90 tabs 07/06/24 tablet,extended release Allergies Allergy/AdvReac Type Severity Reaction Status Date / Time bee pollen Allergy Unknown Verified 07/20/24 14:33 lactose Allergy Unknown Verified 07/20/24 14:33 Review of Systems Const: Denies: fever(s), chills, body aches or change in appetite ENMT: Denies: throat pain or dental pain Card: Denies: chest pain Resp: Denies: dyspnea GI: Denies: abdominal pain, nausea, vomiting or diarrhea Musc: Reports: extremity pain; Denies: neck pain or back pain Skin/Breast: Denies: rash Neuro: Denies: headache(s) PFSH ED PFSH: Medical History Cataract Obesity (BMI 35.0-39.9 without comorbidity) URI with cough and congestion History of 2019 novel coronavirus disease (COVID-19) Tachycardia CKD (chronic kidney disease) stage 3, GFR 30-59 ml/min Benign essential HTN Hyperlipidemia Type 2 diabetes mellitus, with long-term current use of insulin Surgical History H/O esophagogastroduodenoscopy (04/06/20) Status post colonoscopy (04/06/20) repeat in 10 yrs Hx of gastric bypass Hx of hysterectomy Hx of dilation and curettage Status post cervical spinal fusion 07/29/2019 Dr. River Whipple. C5-C6 ACDFF Family History Mother Diabetes Cancer Heart disease Father Cancer Social History Smoking and tobacco/nicotine status: unknown if used tobacco/nicotine Alcohol intake: current Alcohol intake frequency: holidays/special occasions only Substance/Drug Use: never Lives independently: Yes Household members: none and other Details: roommate Marital status: service: No Current occupational status: employed Current occupation: [employer] Physical Exam Const: COMMON NORMALS: no acute distress, patient oriented x3 and healthy appearing HENMT: COMMON NORMALS: normocephalic and atraumatic HEAD & SCALP: normocephalic and atraumatic Eye: COMMON NORMALS: conjunctivae normal CONJUNCTIVA: Yes conjunctivae normal Neck/C-Spine: COMMON NORMALS: full ROM and supple Chest: COMMONS NORMALS: normal inspection of the chest Resp: COMMON NORMALS: normal respiratory effort Cardio: COMMON NORMALS: regular rate RATE: regular rate Extremity: COMMON NORMALS: normal to inspection and full ROM NARRATIVE EXTREMITY EXAM: Tenderness noted to left hip no obvious deformity full range of motion distal pulses intact Neuro: COMMON NORMALS: patient oriented x3, moves all extremities and no focal motor deficits Psych: COMMON NORMALS: mental status grossly normal, Normal thought process present and cooperative THOUGHT PROCESS: Normal thought process present Skin: COMMON NORMALS: no rashes or lesions noted and no wounds GENERAL SKIN EXAM: no rashes or lesions noted Course Vital Signs: Vital signs: Vital Signs Temperature 97.7 F 07/20/24 14:28 Pulse Rate 82 07/20/24 15:34 Respiratory Rate 16 07/20/24 15:02 Blood Pressure 220/110 07/20/24 15:34 Pulse Oximetry 92 07/20/24 15:34 Oxygen Delivery Me thod Room Air 07/20/24 15:34 MDM - Extremity (Nontraumatic) Medical Decision Making Patient presents for left hip pain from a fall imaging here is all normal patient stable for discharge follow-up PCP return if worsening she understands agrees to plan. Medical Records I reviewed the patient's medical records. Lab Data I reviewed the patient's lab results. Radiology Impressions Hip/Pelvis X-Ray 07/20/24 14:36 IMPRESSION: There is no evidence for acute fracture or malalignment. Hip CT 07/20/24 14:55 IMPRESSION: There is no evidence for acute fracture or malalignment. All radiology interpretation(s) finalized by discharge Discharge Plan Discharge Patient Disposition: Home Clinical Impression: Left hip pain Condition: Stable Prescriptions: No Action metoprolol tartrate 100 mg tablet 100 mg PO BID Qty: 60 4RF simvastatin 10 mg tablet 10 mg PO DAILY Qty: 30 5RF gabapentin 300 mg capsule 300 mg PO .po q hs Qty: 30 5RF fluoxetine 40 mg capsule 40 mg PO DAILY Qty: 30 5RF dapagliflozin propanediol [Farxiga] 10 mg tablet 10 mg PO DAILY Qty: 30 5RF duloxetine [Cymbalta] 30 mg capsule,delayed release(DR/EC) 30 mg PO DAILY Qty: 90 1RF furosemide 20 mg tablet 20 mg PO .qPM Qty: 90 1RF Rx Instructions: evening or night nurse supervisor potassium chloride 10 mEq tablet extended release 10 meq PO DAILY Qty: 90 1RF Lantus Solostar U-100 Insulin 100 unit/mL (3 mL) insulin pen 30 unit SUBCUT BID cetirizine 10 mg tablet 10 mg PO DAILY Qty: 30 5RF tramadol 50 mg tablet 50 mg PO Q4H PRN (Reason: pain) Qty: 20 0RF Discharge Orders: Discharge ED (Routine); Ordered 07/20/24 Ordered By: Js Bruno Referrals: Velasquez Frey MD [Primary Care Provider] - 4-7 days Discharge Diet: Advance as tolerated Discharge Activity: Resume usual activity Patient Instructions: Hip Pain (ED) Coding Level of Care Code ED Creative Writing English Professor for Guille Nolasco
[2024-07-20 14:55] VITALS: RESP 16; O2SAT 99
[2024-07-20] MEDS: morphine 4 mg/mL SDV 1 mL IM (14:55)
--- NOTE | 2024-07-20 14:55 | CTR_ITS ---
PROCEDURE INFORMATION: Exam: CT Left Lower Extremity, Hip Exam date and time: 07/20/2024 3:14 PM Age: 64 years old Clinical indication: Injury or trauma; Fall; Blunt trauma; Hip; Left TECHNIQUE: Imaging protocol: CT of the left lower extremity without contrast was performed. Exam focused on the hip. Radiation optimization: All CT scans at this facility use at least one of these dose optimization techniques: automated exposure control; mA and/or kV adjustment per patient size (includes targeted exams where dose is matched to clinical indication); or iterative reconstruction. COMPARISON: CR XR hip LT 2-3V wo/w pel* [id number] 07/20/2024 2:43 PM RADIATION DOSE METRICS: Total DLP (mGy-cm): 416.08 FINDINGS: Bones/joints: No acute fracture or dislocation. There is joint space narrowing osteophyte formation in the left hip. Soft tissues: Normal. CT/CT hip LT wo con* [id number] IMPRESSION: There is no evidence for acute fracture or malalignment.
[2024-07-20] MEDS: hyDRALAzine 25 mg Tablet PO (14:59)
[2024-07-20 15:02] VITALS: BP 225/136; PULSE 84; RESP 16; O2SAT 96
[2024-07-20 15:34] VITALS: BP 220/110; PULSE 82; O2SAT 92
[2024-07-20 16:43] VITALS: BP 218/120; PULSE 81; O2SAT 93
--- NOTE | 2024-07-20 16:43 | PC.NURSE ---
pt dc bp 218/120. dr. alfonso notified and made aware, dr. alfonso okayed pt to discharge with bp.
== END 2024-07-20 16:44 | disposition home or self-care (01) ==
PROVIDERS: Emergency Provider Emergency Medicine; PCP Family Medicine
DX: M25.552 Pain in left hip (principal); E11.22 Type 2 diabetes mellitus with diabetic chronic kidney disease; I12.9 Hypertensive chronic kidney disease with stage 1 through stage 4 chronic kidney disease, or unspecified chronic kidney disease; N18.30 Chronic kidney disease, stage 3 unspecified; E78.5 Hyperlipidemia, unspecified
CPT/HCPCS: 73502; 73700; 96372; 99284; J2270

== ENCOUNTER → 2024-08-24 10:03 | Outpatient (BNVA) | payer OTHER, SELFPAY | PROVIDERS: PCP Family Medicine; Visit Provider Family Medicine | DX: E11.21 Type 2 diabetes mellitus with diabetic nephropathy (principal); Z79.4 Long term (current) use of insulin; F33.1 Major depressive disorder, recurrent, moderate; I10 Essential (primary) hypertension; E78.2 Mixed hyperlipidemia; E66.9 Obesity, unspecified; N18.32 Chronic kidney disease, stage 3b; R26.89 Other abnormalities of gait and mobility; I50.9 Heart failure, unspecified; R60.9 Edema, unspecified | CPT/HCPCS: 80048; 83036 ==

== ENCOUNTER 2024-09-22 07:32 | Outpatient (CLI) | payer OTHER, SELFPAY ==
--- NOTE | 2024-09-22 07:45 | USCV_ITS ---
Iris Chaney Age: 64 Gender: F : 1960 Exam Date: 09/22/2024 07:45 Ordering Phys: Velasquez Frey MD Technologist: [place] [facility] [place]: BP: 157 / 76 HR: 61 Rhythm: Sinus Technical Quality: Adequate MEASUREMENTS (Male / Female) Normal Values 2D ECHO LV Diastolic Diameter PLAX 4.4 cm 4.2 - 5.9 / 3.9 - 5.3 cm IVS Diastolic Thickness 1.5 cm 0.6 - 1.0 / 0.6 - 0.9 cm IVS Systolic Thickness 1.8 cm LVPW Diastolic Thickness 1.4 cm 0.6 - 1.0 / 0.6 - 0.9 cm LVPW Systolic Thickness 2.0 cm LVOT Diameter 2.1 cm LV Ejection Fraction 2D Teich 62.5 % LV Ejection Fraction MOD 4C 55.9 % LV Ejection Fraction MOD 2C 54.0 % LV Ejection Fraction 2C AL 53.4 % LA Diameter 3.6 cm RA Systolic Volume 4C AL 35.6 ml RA Systolic Volume 4C MOD 35.4 ml Aorta at Sinotubular Diameter 3.2 cm IVC Diameter 1.7 cm M-MODE LA Ao Ratio MM 1.3 AV Cusp Separation MM 2.1 cm DOPPLER AV Peak Velocity 120.0 cm/s LVOT Peak Velocity 84.0 cm/s AV Area Cont Eq vti 2.6 cm squared AV Area Cont Eq pk 2.5 cm squared MV Peak Velocity 101.0 cm/s MV Area PHT 4.7 cm squared Mitral E to A Ratio 1.5 TV Peak Velocity 154.0 cm/s TR Peak Velocity 184.0 cm/s TR Peak Gradient 13.5 mmHg TV Peak E Velocity 114.0 cm/s PV Peak Velocity 82.0 cm/s FINDINGS Left Ventricle Normal left ventricular size, systolic function and wall thickness, with no regional wall motion abnormalities. Left ventricular ejection fraction is estimated at 60 %. Grade II/IV diastolic dysfunction, moderately elevated filling pressures. Right Ventricle The right ventricle is normal in size and function. Right Atrium The right atrium is normal in size. Left Atrium The left atrium is normal in size. Mitral Valve Mildly thickened mitral valve. No mitral valve stenosis. Mild mitral valve regurgitation. Aortic Valve Moderate aortic valve calcification. No aortic valve stenosis. Mild aortic valve regurgitation. Tricuspid Valve Structurally normal tricuspid valve without significant stenosis or regurgitation. Pulmonary artery systolic pressure is normal. Pulmonic Valve Structurally normal pulmonic valve without significant stenosis. There is no pulmonic regurgitation. Pericardium Normal pericardium without effusion. Aorta Normal ascending aorta dimension. IVC The inferior vena cava appears normal. CONCLUSIONS Normal left ventricular size, systolic function and wall thickness, with no regional wall motion abnormalities. Left ventricular ejection fraction is estimated at 60 %. Grade II/IV diastolic dysfunction, moderately elevated filling pressures. No significant valve abnormalities. There is no pericardial effusion. Right atrial pressure is around 5 mm of mercury. Neida Burrell MD (Electronically Signed) Final Date: 11 October 2024 19:05 S
== END 2024-09-22 07:33 | disposition home or self-care (01) ==
PROVIDERS: PCP Family Medicine; Visit Provider Family Medicine
DX: I50.9 Heart failure, unspecified (principal); R93.1 Abnormal findings on diagnostic imaging of heart and coronary circulation; I34.0 Nonrheumatic mitral (valve) insufficiency; I35.8 Other nonrheumatic aortic valve disorders; I35.1 Nonrheumatic aortic (valve) insufficiency
CPT/HCPCS: 93306

== ENCOUNTER → 2024-09-30 08:34 | Outpatient (BNVA) | payer OTHER, SELFPAY | PROVIDERS: PCP Family Medicine; Visit Provider Family Medicine | DX: E11.9 Type 2 diabetes mellitus without complications (principal) | CPT/HCPCS: 83036 ==

== ENCOUNTER → 2024-11-23 10:22 | Outpatient (BNVA) | payer OTHER, SELFPAY | PROVIDERS: PCP Family Medicine; Visit Provider Family Medicine | DX: E11.21 Type 2 diabetes mellitus with diabetic nephropathy (principal); Z79.4 Long term (current) use of insulin | CPT/HCPCS: 80053; 80061; 82043; 85025 ==

== ENCOUNTER 2024-12-27 09:40 | Emergency (ER) | payer OTHER, SELFPAY ==
[2024-12-27] VITALS (39 sets, daily range): BP systolic 171–267; BP diastolic 87–123; PULSE 67–87; RESP 9–24; TEMP 36.7; O2SAT 95–100; BMI 36.6
--- NOTE | 2024-12-27 09:45 | ECG_ITS ---
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 Measurements Intervals [place] Rate: 74 P: 26 LA: 151 QRS: -4 QRSD: 106 T: 58 QT: 408 QTc: 454 Interpretive Statements SINUS RHYTHM MODERATE VOLTAGE CRITERIA FOR LVH, CONSIDER NORMAL VARIANT [MEETS CRITERIA IN ONE OF: R(aVL), S(V1), R(V5), R(V5/V6)+S(V1)] POSSIBLE ANTERIOR MYOCARDIAL INFARCTION , OF INDETERMINATE AGE [30 ms Q WAVE IN V3/V4, OR R < 0.2 mV IN V4] Compared to ECG 10/11/2023 01:20:09 Atrial flutter no longer present Incomplete right bundle-branch block no longer present ST (T wave) deviation no longer present Myocardial infarct finding still present Electronically Signed On 12-28-2024 11:37:35 CDT by Shalom Ellsworth M.D. [email or web address]
--- NOTE | 2024-12-27 09:57 | W.ED.GENADLT ---
HPI - General Adult General: Stated complaint: high bp Time Seen by Provider: 12/27/24 09:44 History of Present Illness: Associated symptoms: Deny chest pain, dyspnea or rash Related Data Previous Rx's ?Medication ?Instructions ?Recorded cetirizine 10 mg tablet 10 mg PO DAILY #30 tabs 02/15/20 gabapentin 300 mg capsule 300 mg PO .po q hs #30 caps 03/26/24 simvastatin 10 mg tablet 10 mg PO DAILY #30 tabs 03/26/24 duloxetine 30 mg capsule,delayed 30 mg PO DAILY #90 caps 07/06/24 release (Cymbalta) furosemide 20 mg tablet 20 mg PO .qPM #90 tabs 07/06/24 potassium chloride 10 mEq 10 meq PO DAILY #90 tabs 07/06/24 tablet,extended release gabapentin 100 mg capsule 100 mg PO TID 10 days #30 caps 07/26/24 tramadol 50 mg tablet 50 mg PO Q4H PRN pain #20 tabs 09/30/24 cephalexin 500 mg capsule 500 mg PO TID #30 caps 11/23/24 dapagliflozin propanediol 10 mg 10 mg PO DAILY #90 tabs 11/23/24 tablet (Farxiga) fluoxetine 40 mg capsule 40 mg PO DAILY #90 caps 11/23/24 glyburide 2.5 mg tablet 2.5 mg PO DAILY #90 tabs 11/23/24 lisinopril 20 mg tablet 20 mg PO DAILY #30 tabs 11/23/24 metoprolol tartrate 100 mg tablet 100 mg PO BID #180 tabs 11/23/24 insulin glargine 100 unit/mL (3 42 unit (0.42 mL) SUBCUT QAM 90 11/26/24 mL) subcutaneous pen (Lantus days #37.8 mL Solostar U-100 Insulin) Allergies Allergy/AdvReac Type Severity Reaction Status Date / Time bee pollen Allergy Unknown Verified 12/23/24 08:33 lactose Allergy Unknown Verified 12/23/24 08:33 Review of Systems Const: Denies: fever(s) or chills Card: Denies: chest pain Resp: Denies: dyspnea GI: Denies: abdominal pain : Denies: dysuria, urinary frequency or urinary urgency Musc: Denies: neck pain or back pain Skin/Breast: Denies: rash PFSH ED PFSH: Medical History Cataract Obesity (BMI 35.0-39.9 without comorbidity) URI with cough and congestion History of 2019 novel coronavirus disease (COVID-19) Tachycardia CKD (chronic kidney disease) stage 3, GFR 30-59 ml/min Benign essential HTN Hyperlipidemia Type 2 diabetes mellitus, with long-term current use of insulin Surgical History H/O esophagogastroduodenoscopy (04/06/20) Status post colonoscopy (04/06/20) repeat in 10 yrs Hx of gastric bypass Hx of hysterectomy Hx of dilation and curettage Status post cervical spinal fusion 07/29/2019 Dr. River Whipple. C5-C6 ACDFF Family History Mother Diabetes Cancer Heart disease Father Cancer Social History Smoking and tobacco/nicotine status: never used tobacco/nicotine Alcohol intake: current Alcohol intake frequency: holidays/special occasions only Substance/Drug Use: never Lives independently: Yes Household members: none and other Details: roommate Marital status: service: No Current occupational status: employed Current occupation: [employer] Physical Exam Const: COMMON NORMALS: no acute distress GENERAL APPEARANCE: cooperative and comfortable ORIENTATION/CONSCIOUSNESS: Yes awake, Yes oriented to person, Yes oriented to place and Yes oriented to time HENMT: COMMON NORMALS: normocephalic, atraumatic and hearing grossly normal bilaterally HEAD & SCALP: normocephalic and atraumatic Resp: COMMON NORMALS: normal respiratory effort, No retractions, No use of accessory muscles and clear to auscultation bilaterally AUSCULTATION: clear to auscultation bilaterally Cardio: COMMON NORMALS: regular rate, regular rhythm and No murmurs present (Cardio) RATE: regular rate RHYTHM: regular rhythm GI: COMMON NORMALS: Soft to palpation and No hepatosplenomegaly present AUSCULTATION: Yes normoactive bowel sounds PALPATION: Yes Soft to palpation, No Tenderness to palpation present (GI), No Guarding due to palpation present (GI) and Yes No hepatosplenomegaly present Extremity: COMMON NORMALS: normal to inspection, capillary refill normal, no clubbing, cyanosis or edema, no calf tenderness and no pedal edema Neuro: SENSORIUM/ORIENTATION: Yes oriented to person, Yes oriented to place and Yes oriented to time Skin: COMMON NORMALS: no rashes or lesions noted GENERAL SKIN EXAM: no rashes or lesions noted Discharge Plan Discharge Condition: Stable Prescriptions: No Action simvastatin 10 mg tablet 10 mg PO DAILY Qty: 30 5RF gabapentin 300 mg capsule 300 mg PO .po q hs Qty: 30 5RF duloxetine [Cymbalta] 30 mg capsule,delayed release(DR/EC) 30 mg PO DAILY Qty: 90 1RF furosemide 20 mg tablet 20 mg PO .qPM Qty: 90 1RF Rx 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 potassium chloride 10 mEq tablet extended release 10 meq PO DAILY Qty: 90 1RF gabapentin 100 mg capsule 100 mg PO TID 10 Days Qty: 30 0RF Rx Instructions: in addition to your regular gabapentine dose for 10 days povidone-iodine [Betadine Swabsticks] 10 % swab 1 applic topical ONCE Qty: 1 0RF dapagliflozin propanediol [Farxiga] 10 mg tablet 10 mg PO DAILY Qty: 90 1RF glyburide 2.5 mg tablet 2.5 mg PO DAILY Qty: 90 1RF metoprolol tartrate 100 mg tablet 100 mg PO BID Qty: 180 1RF lisinopril 20 mg tablet 20 mg PO DAILY Qty: 30 1RF fluoxetine 40 mg capsule 40 mg PO DAILY Qty: 90 1RF cephalexin 500 mg capsule 500 mg PO TID Qty: 30 0RF cetirizine 10 mg tablet 10 mg PO DAILY Qty: 30 5RF tramadol 50 mg tablet 50 mg PO Q4H PRN (Reason: pain) Qty: 20 0RF Lantus Solostar U-100 Insulin 100 unit/mL (3 mL) insulin pen 42 unit SUBCUT QAM 90 Days Qty: 37.8 0RF Rx Instructions: May give up to 50u per day Referrals: Jeannie Shrestha DO [Primary Care Provider, Family Practice] Print Language: Syriac Coding Level of Care Code ED Cabinet Assembler for Guille Nolasco
--- NOTE | 2024-12-27 10:11 | XR_ITS ---
WS: [id number] XR chest 1V portable [id number] REASON FOR EXAM: dyspnea/cough FINDINGS: Chest is unchanged compared to 07/26/2019. Moderate tortuosity and ectasia of the thoracic aorta with upper limits of normal heart size. Minimal calcified granulomatous disease bilaterally. No acute pulmonary parenchymal or pleural abnormality. 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 Mild to moderate degenerative spondylosis in the thoracic spine. XR/XR chest 1V portable [id number] IMPRESSION: Stable chest without acute abnormality.
--- NOTE | 2024-12-27 10:25 | ED_ITS ---
HPI - General Adult 2 General: Chief complaint: General Medical Stated complaint: high bp Time Seen by Provider: 12/27/24 09:44 Source: patient Mode of arrival: ambulatory Limitations: no limitations History of Present Illness: 64-year-old female has a history of hype rtension states her blood pressure has been running high lately she states she has been under a lot of stress she is over the crisis center today and they sent her here due to high blood pressures Associated symptoms: Deny chest pain, dyspnea, headache(s), nausea, rash or vomiting Related Data Home Medications ?Medication ?Instructions ?Recorded ?Confirmed gabapentin 300 mg capsule 300 mg PO BEDTIME PRN nerve pain 12/27/24 12/27/24 Previous Rx's ?Medication ?Instructions ?Recorded cetirizine 10 mg tablet 10 mg PO DAILY #30 tabs 01/26 08/16 simvastatin 10 mg tablet 10 mg PO DAILY #30 tabs 02/27 duloxetine 30 mg capsule,delayed 30 mg PO DAILY #90 ca ps 07/06/24 release (Cymbalta) furosemide 20 mg tablet 20 mg PO .qPM #90 tabs 07/06 potassium chloride 10 mEq 10 meq PO DAILY #90 tabs 05/20 tablet,extended release tramadol 50 mg tablet 50 mg PO Q4H PRN pain #20 ta bs 09/30/24 dapagliflozin propanediol 10 mg 10 mg PO DAILY #90 tab s 11/23/24 tablet (Farxiga) fluoxetine 40 mg capsule 40 mg PO DAILY #90 caps 10/27 04/21 glyburide 2.5 mg tablet 2.5 mg PO DAILY #90 tabs lisinopril 20 mg tablet 20 mg PO DAILY #30 tabs 10/27 04/21 metoprolol tartrate 100 mg tablet 100 mg PO BID #180 t abs 11/23/24 insulin glargine 100 unit/mL (3 42 unit (0.42 mL) SUBC UT QAM 90 11/26/24 mL) subcutaneous pen (Lantus days #37.8 mL Solostar U-100 Insulin) amlodipine 10 mg tablet (Norvasc) 10 mg PO BID #60 tab s 12/27/24 Allergies Allergy/AdvReac Type Severity Reaction Status Date / Time bee pollen Allergy Unknown Verified 12/27/24 10:14 lactose Allergy Unknown Verified 12/27/24 10:14 Review of Systems 2 Const: Denies: fever(s), chills, body aches or change in appetite ENMT: Denies: throat pain or dental pain Card: Denies: chest pain Resp: Denies: dyspnea GI: Denies: abdominal pain, nausea, vomiting or diarrhea : Denies: dysuria Musc: Denies: neck pain or back pain Skin/Breast: Denies: rash Neuro: Denies: headache(s) PFSH ED 2 PFSH: Medical History Cataract Obesity (BMI 35.0-39.9 without comorbidity) URI with cough and congestion History of 2019 novel coronavirus disease (COVID-19) Tachycardia CKD (chronic kidney disease) stage 3, GFR 30-59 ml/min Benign essential HTN Hyperlipidemia Type 2 diabetes mellitus, with long-term current use of insulin Surgical History H/O esophagogastroduodenoscopy (04/06/20) Status post colonoscopy (04/06/20) repeat in 10 yrs Hx of gastric bypass Hx of hysterectomy Hx of dilation and curettage Status post cervical spinal fusion 07/29/2019 Dr. River Whipple. C5-C6 ACDFF Family History Mother Diabetes Cancer Heart disease Father Cancer Social History Smoking and tobacco/nicotine status: never used tobacco/nicotine Alcohol intake: current Alcohol intake frequency: holidays/special occasions only Substance/Drug Use: never Lives independently: Yes Household members: none and other Details: roommate Marital status: service: No Current occupational status: employed Current occupation: [employer] Physical Exam 2 Const: COMMON NORMALS: no acute distress, patient oriented x3 and healthy appearing HENMT: COMMON NORMALS: normocephalic and atraumatic HEAD & SCALP: n ormocephalic and atraumatic Eye: COMMON NORMALS: conjunctivae normal CONJUNCTIVA: Yes conjunctivae normal Neck/C-Spine: COMMON NORMALS: full ROM and supple Chest: COMMONS NORMALS: normal inspection of the chest and normal palpation of entire chest wall Resp: COMMON NORMALS: normal respiratory effort, No retractions, No use of accessory muscles and clear to auscultation bilaterally AUSCULTATION: clear to auscultation bilaterally Cardio: COMMON NORMALS: regular rate, regular rhythm and No murmurs present (Cardio) RATE: regular rate RHYTHM: regular rhythm GI: COMMON NORMALS: Normal to inspection, nondistended, normoactive bowel sounds present, Soft to palpation, non-tender and no masses PALPATION: Yes Soft to palpation Extremity: COMMON NORMALS: normal to inspection and full ROM Neuro: COMMON NORMALS: patient oriented x3, moves all extremities and no focal motor deficits Psych: COMMON NORMALS: mental status grossly normal, Normal thought process present and cooperative THOUGHT PROCESS: Normal thought process present Skin: COMMON NORMALS: no rashes or lesions noted and no wounds GENERAL SKIN EXAM: no rashes or lesions noted Course 2 Vital Signs: Vital signs: Vital Signs Temperature 98.1 F 12/27/24 10:04 Pulse Rate 84 12/27/24 13:20 Respiratory Rate 13 12/27/24 13:20 Blood Pressure 200/94 12/27/24 13:20 Pulse Oximetry 100 12/27/24 13:20 Oxygen Delivery Me thod Room Air 12/27/24 13:15 MDM - General Adult Medical Decision Making Patient presents here with hypertension she has been asymptomatic blood work here is normal blood pressure has improved will add Norvasc she has to follow-up with PCP return if worsening she understands agrees to plan. Medical Records I reviewed the patient's medical records. Lab Data I reviewed the patient's lab results. 12/27/24 10:29 12/27/24 10:29 Radiology Impressions Chest X-Ray 12/27/24 10:11 IMPRESSION: Stable chest without acute abnormality. Laboratory Results WBC 5.95 10^3/uL (3.29-11.43) 12/27/24 10:29 RBC 4.24 10^6/uL (3.85-5.65) 12/27/24 10:29 Hgb 12.10 g/dL (11.27-16.99) 12/27/24 10:29 Hct 35.8 % (36-47) L 12/27/24 10:29 MCV 84.4 fl (85-98) L 12/27/24 10:29 MCH 28.5 pg (27-33) 12/27/24 10: MCHC 33.8 g/dL (30-55) 12/27/24 10: RDW 13.6 % (12.1-15.1) 12/27/24 10: Plt Count 171 10^3/cmm (157-399) 12/27/24 10: MPV 9.2 fL (7.4-10.4) 12/27/24 10: Neut % (Auto) 50.0 % 12/27/24 10:29 Lymph % (Auto) 39.7 % 12/27/24 10:29 [place] % (Auto) 7.4 % 12/27/24 10: Eos % (Auto) 2.4 % 12/27/24 10: Baso % (Auto) 0.3 % 12/27/24 10: Neut # (Auto) 2.98 10^3/uL (1.8-7.7) 12/27/24 10:29 Lymph # (Auto) 2.4 10^3/uL (0.8-4.8) 12/27/24 10:29 [place] # (Auto) 0.4 10^3/uL (0.2-0.9) 12/27/24 10:29 Eos # (Auto) 0.1 10^3/uL (0.0-0.8) 12/27/24 10: Baso # (Auto) 0.0 10^3/uL (0.0-0.1) 12/27/24 10: Nucleated RBC % (auto) 0 % 12/27/24 10: Nucleated RBCs # 0.0 /100WBC 12/27/24 10: Sodium 134 mmol/L (136-145) L 12/27/24 10: Potassium 4.0 mmol/L (3.5-5.1) 12/27/24 10: Chloride 97 mmol/L (98-107) L 12/27/24 10: Carbon Dioxide 28 mmol/L (22-29) 12/27/24 10: Anion Gap 13.0 (5-19) 12/27/24 10: BUN 14 mg/dL (8-23) 12/27/24 10: Creatinine 1.1 mg/dL (0.5-0.9) H 12/27/24 10:29 GFR Calculation 50.0 mL/min (90-130) L 12/27/24 10:29 Glucose 257 mg/dL (65-115) H 12/27/24 10:29 Calculated Osmolality 287 mOsm/kg (285-295) 12/27/24 10:29 Calcium 8.5 mg/dL (8.5-10.5) 12/27/24 10:29 Total Bilirubin 0.6 mg/dL (0.15-1.2) 12/27/24 10:29 AST 14 U/L (0-32) 12/27/24 10:29 ALT 11 U/L (0-33) 12/27/24 10:29 Alkaline Phosphatase 144 U/L (35-105) H 12/27/24 10:29 Troponin T Baseline 11 ng/L (0-10) H 12/27/24 10:29 Troponin T 120 Minute 11.97 ng/L (0-10) H 12/27/24 12:47 Delta Troponin T 0.97 ABS# (0-10) 12/27/24 12:47 Total Protein 6.6 g/dL (6.6-8.7) 12/27/24 10:29 Albumin 3.8 g/dL (3.5-5.2) 12/27/24 10:29 Globulin 2.8 g/dL (1.3-4.6) 12/27/24 10:29 All radiology interpretation(s) finalized by discharge Discharge Plan Discharge Patient Disposition: Home Clinical Impression: Benign essential HTN Condition: Stable Prescriptions: New amlodipine [Norvasc] 10 mg tablet 10 mg PO BID Qty: 60 0RF No Action simvastatin 10 mg tablet 10 mg PO DAILY Qty: 30 5RF duloxetine [Cymbalta] 30 mg capsule,delayed release(DR/EC) 30 mg PO DAILY Qty: 90 1RF furosemide 20 mg tablet 20 mg PO .qPM Qty: 90 1RF Rx 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 potassium chloride 10 mEq tablet extended release 10 meq PO DAILY Qty: 90 1RF dapagliflozin propanediol [Farxiga] 10 mg tablet 10 mg PO DAILY Qty: 90 1RF glyburide 2.5 mg tablet 2.5 mg PO DAILY Qty: 90 1RF metoprolol tartrate 100 mg tablet 100 mg PO BID Qty: 180 1RF lisinopril 20 mg tablet 20 mg PO DAILY Qty: 30 1RF fluoxetine 40 mg capsule 40 mg PO DAILY Qty: 90 1RF cetirizine 10 mg tablet 10 mg PO DAILY Qty: 30 5RF tramadol 50 mg tablet 50 mg PO Q4H PRN (Reason: pain) Qty: 20 0RF Lantus Solostar U-100 Insulin 100 unit/mL (3 mL) insulin pen 42 unit SUBCUT QAM 90 Days Qty: 37.8 0RF Rx Instructions: May give up to 50u per day gabapentin 300 mg capsule 300 mg PO BEDTIME PRN (Reason: nerve pain) Discharge Orders: Discharge ED (Routine); Ordered 12/27/24 Ordered By: Js Bruno Referrals: Jeannie Shrestha DO [Primary Care Provider, Family Practice] - 4-7 days Discharge Diet: Advance as tolerated Discharge Activity: Resume usual activity Patient Instructions: Hypertension (ED) Print Language: Persian Coding Level of Care Code ED Digital Marketing Project Manager for Guille Nolasco
[2024-12-27] MEDS: labetalol 5 mg/mL SDV 20mL 10 MG IVP (10:31)
[2024-12-27 10:34] LABS: Basophils % 0.3 %; Eosinophils # 0.1 10^3/uL (0.0-0.8); Eosinophils % 2.4 %; Hematocrit 35.8 % (36-47); Lymphocytes # 2.4 10^3/uL (0.8-4.8); Lymphocytes % 39.7 %; Mean Corpuscular HGB Conc 33.8 g/dL (30-55); Mean Corpuscular Hemoglobin 28.5 pg (27-33); Mean Corpuscular Volume 84.4 fl (85-98); Mean Platelet Volume 9.2 fL (7.4-10.4); Monocytes # 0.4 10^3/uL (0.2-0.9); Monocytes % 7.4 %; Neutrophils # 2.98 10^3/uL (1.8-7.7); Nucleated Red Blood Cells % 0 %; Platelet Count 171 10^3/cmm (157-399); Red Blood Count 4.24 10^6/uL (3.85-5.65); Red Cell Distribution Width 13.6 % (12.1-15.1); White Blood Count 5.95 10^3/uL (3.29-11.43)
[2024-12-27] MEDS: hyDRALAzine 20 mg/mL INJ 1 mL 10 MG IVP ×3 (10:36→13:15)
[2024-12-27 11:00] LABS: Alanine Aminotransferase 11 U/L (0-33); Albumin Level 3.8 g/dL (3.5-5.2); Alkaline Phosphatase 144 U/L (35-105); Aspartate Amino Transferase 14 U/L (0-32); Blood Urea Nitrogen 14 mg/dL (8-23); Calcium 8.5 mg/dL (8.5-10.5); Carbon Dioxide 28 mmol/L (22-29); Chloride 97 mmol/L (98-107); Creatinine Clr Calc Pharmacy 56.2783; Globulin 2.8 g/dL (1.3-4.6); Glucose 257 mg/dL (65-115); Osmolality Calculated 287 mOsm/kg (285-295); Sodium 134 mmol/L (136-145); Total Bilirubin 0.6 mg/dL (0.15-1.2); Total Protein 6.6 g/dL (6.6-8.7); Troponin(5th) Baseline 11 ng/L (0-10)
--- NOTE | 2024-12-27 12:40 | ECG_ITS ---
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: : 1960 Requested By: Js Bruno Order Number: [id number] [place] MD: GANGA GONZALEZ Measurements Intervals [place] Rate: 75 P: 56 FL: 155 QRS: -11 QRSD: 108 T: 46 QT: 346 QTc: 388 Interpretive Statements SINUS RHYTHM MODERATE VOLTAGE CRITERIA FOR LVH, CONSIDER NORMAL VARIANT [MEETS CRITERIA IN ONE OF: R(aVL), S(V1), R(V5), R(V5/V6)+S(V1)] NONSPECIFIC ST & T-WAVE ABNORMALITY Compared to ECG 12/27/2024 10:05:59 T-wave abnormality now present Myocardial infarct finding no longer present Electronically Signed On 12-29-2024 23:03:06 CDT by GANGA GONZALEZ [email or web address]
[2024-12-27 13:16] LABS: Troponin 5 2HR 11.97 ng/L (0-10); Troponin 5 2HR Delta 0.97 ABS# (0-10)
== END 2024-12-27 13:45 | disposition home or self-care (01) ==
PROVIDERS: Family Medicine; Emergency Provider Emergency Medicine; PCP Family Medicine
DX: E11.22 Type 2 diabetes mellitus with diabetic chronic kidney disease (principal); I12.9 Hypertensive chronic kidney disease with stage 1 through stage 4 chronic kidney disease, or unspecified chronic kidney disease; N18.30 Chronic kidney disease, stage 3 unspecified; E78.5 Hyperlipidemia, unspecified
CPT/HCPCS: 36415; 71045; 80053; 84484; 85025; 93005; 96374; 96375; 96376; 99285; J0360; J3490

== ENCOUNTER → 2025-01-20 10:47 | Outpatient (BNVA) | payer OTHER, SELFPAY | PROVIDERS: PCP Family Medicine; Visit Provider Family Medicine | DX: F33.2 Major depressive disorder, recurrent severe without psychotic features (principal); F41.1 Generalized anxiety disorder; F43.21 Adjustment disorder with depressed mood; E11.21 Type 2 diabetes mellitus with diabetic nephropathy; Z79.4 Long term (current) use of insulin; N18.32 Chronic kidney disease, stage 3b | CPT/HCPCS: 80053; 83036; 87070; 87075; 87077; 87184; 87205 ==

== ENCOUNTER → 2025-01-21 10:00 | Outpatient (BNVA) | payer OTHER, SELFPAY | PROVIDERS: PCP Family Medicine; Visit Provider Psychiatry & Neurology Psychiatry | DX: F43.21 Adjustment disorder with depressed mood (principal); F41.1 Generalized anxiety disorder; F33.2 Major depressive disorder, recurrent severe without psychotic features | CPT/HCPCS: 80061; 83036 ==

== ENCOUNTER → 2025-01-27 08:05 | Outpatient (BNVA) | payer OTHER, SELFPAY ==
[2025-01-25 12:06] VITALS: BP 153/73; BMI 36.8
== END ==
PROVIDERS: PCP Family Medicine
DX: N18.32 Chronic kidney disease, stage 3b (principal); E78.2 Mixed hyperlipidemia; E11.21 Type 2 diabetes mellitus with diabetic nephropathy; Z79.4 Long term (current) use of insulin; D50.9 Iron deficiency anemia, unspecified
CPT/HCPCS: 80048; 80069; 82542; 84156; 85025

== ENCOUNTER → 2025-02-08 08:25 | Outpatient (BNVA) | payer OTHER, SELFPAY ==
[2025-01-25 12:06] VITALS: BP 153/73; BMI 36.8
== END ==
PROVIDERS: PCP Family Medicine; Visit Provider Family Medicine
DX: I10 Essential (primary) hypertension (principal)
CPT/HCPCS: 80048

== ENCOUNTER → 2025-02-24 13:51 | Outpatient (BNVA) | payer OTHER, SELFPAY ==
[2025-01-25 12:06] VITALS: BP 153/73; BMI 36.8
== END ==
PROVIDERS: PCP Family Medicine; Visit Provider Thoracic Surgery (Cardiothoracic Vascular Surgery)
DX: L98.492 Non-pressure chronic ulcer of skin of other sites with fat layer exposed (principal)
CPT/HCPCS: 88305

== ENCOUNTER 2025-03-18 13:23 | Outpatient (CLI) | payer OTHER, SELFPAY ==
[2025-01-25 12:06] VITALS: BP 153/73; BMI 36.8
--- NOTE | 2025-03-18 13:32 | CT_ITS ---
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 Sagittal and coronal reformats are also submitted. All CT scans at [facility] use at least one of these dose optimization techniques: automated exposure control; mA and/or kV adjustment per patient size (includes targeted exams where dose is matched to clinical indication); or iterative reconstruction. CONTRAST: CONTRAST: Omnipaque 350; 100 mL IV. DLP: 2346.28 mGy.cm COMPARISON: None available. Nasopharynx, oropharynx, hypopharynx and larynx are unremarkable. No soft tissue masses or abnormal enhancement. Torus tubarius and fossa of Rosenmuller and parapharyngeal fat are normal. Frontal scalp lesions typically drain preauricular or submental. No lymph nodes are identified in the preauricular region. Indeterminate level 1B lymph nodes with the largest on the LEFT 12 mm. This lymph node is just above the posterior margin of the submandibular gland consistent with a level 1B lymph node. There are smaller level 1B lymph nodes bilaterally. There are several lymph nodes posterior to the submandibular gland with the largest being 13 mm at level 2A on the LEFT. There is an enhancing nodule within the superficial LEFT parotid gland measuring 7.7 mm which is probably an intramammary lymph node but neoplasm in this location is not excluded. Anterior cervical fusion with interbody spacer at C5-6. No destructive bone lesions. Visualized portions of the skull base demonstrate no abnormalities. Orbits and globes are within normal limits. No soft tissue masses. Mucous retention cyst or polyp in the LEFT maxillary sinus. Lung apices are clear. CT/CT neck w con* [id number] IMPRESSION: 1. Indeterminate lymph nodes at level 1B and level 2A on the LEFT. These lymph nodes are measuring larger in size but didn't appear to be present on the neck CT of 10/11/2023. Suggest evaluation by PET/CT imaging. 2. Additional enhancing well-circumscribed 7.7 mm mass in the LEFT parotid gla nd which may be a benign lymph node or parotid tumor. This can also be evaluate d by PET/CT imaging.
--- NOTE | 2025-03-18 13:32 | CT_ITS ---
WS: [id number] CT HEAD TECHNIQUE: Noncontrast and contrast-enhanced CT of the head. CLINICAL INFORMATION: SQUAMOUS CELL CARCINOMA OF SKIN SCALP NECK DLP: 2346.[address] scans at [facility] use at least one of these dose optimization techniques: automated exposure control; mA and/or kV adjustment per patient size (includes targeted exams where dose is matched to clinical indication); or iterative reconstruction. FINDINGS: Enhancing scalp lesion overlying the frontal calvarium slightly LEFT of midline. This involves the subcutaneous soft tissues extending down to the frontal calvarium with loss of the normal fat plane. No evidence of underlying bony destruction. Induration in the subcutaneous soft tissues. No abnormal intracranial enhancement. Mild small vessel changes. Mild parenchymal volume loss. Small retention cyst or polyp LEFT maxillary sinus. CT/CT head wo/w con [id number] IMPRESSION: 1. Enhancing scalp lesion overlying the frontal calvarium. Subcutaneous fat in volvement down to the osseous calvarium. No evidence of bony destruction. 2. No other acute findings
[2025-03-18] MEDS: iohexol 350 mg/mL 500 mL Btl (per mL) IV ×2 (13:55→13:56)
== END 2025-03-18 13:24 | disposition home or self-care (01) ==
LOC: RAD 13:24
PROVIDERS: PCP Family Medicine; Visit Provider Dermatology
DX: C44.42 Squamous cell carcinoma of skin of scalp and neck (principal); K11.8 Other diseases of salivary glands
CPT/HCPCS: 70470; 70491

== ENCOUNTER 2025-03-23 05:15 | Emergency (ER) | payer OTHER, SELFPAY ==
[2025-01-25 12:06] VITALS: BP 153/73; BMI 36.8
[2025-03-23 05:22] VITALS: BP 152/70; PULSE 71; RESP 18; O2SAT 100; BMI 36.6
--- OUTSIDE RECORDS SUMMARY | 2025-03-23 05:22 | XMS_ITS | Encounter Summary ---
Author Organization [facility] [facility] [facility], [facility] Address [address] [facility] [address] [place] [address] Phone Care Team Providers Care Manager Cardiovascular Name Role Phone Kaya Shresthafer Primary Care Provider [phone] Encounter Details Date Type Department Care Team (Late st Contact Info) Description 02/28/2020 Orders Only [facility] [address] [facility] [address] [place] [address] Chronic kidney disease, stage 3 (moderate) (HCC) Social History Tobacco Use Types Packs/Day Years Used Date Smoking Tobacco: Never Assessed Comments Unknown Sex and Gender Information Value Date Recorded Sex Assigned at Not on file Legal Sex Female 12:45 PM EDT Gender Identity Not on file Sexual Orientation Not on file documented as of this encounter Plan of Treatment Upcoming Encounters Date Type Department Care Team (Late st Contact Info) Description 08/10/2025 9:20 AM WAGE CONCILIATOR Office Visit [facility], [facility] [address] [place] [address] Lorena Petersen MD [address] [facility] [address] [place] [address] documented as of this encounter Visit Diagnoses Diagnosis Chronic kidney disease, stage 3 (moderate) documented in this encounter Care Teams Manager Cardiovascular Relationship Specialty Start Date End Date Jeannie Shrestha DO PCP - General Family Medicine 07/05/20 documented as of this encounter
--- OUTSIDE RECORDS SUMMARY | 2025-03-23 05:22 | XMS_ITS | Clinical Summary ---
Author Organization [facility] Address [address] [place] [id number] Care Team Providers Care Agriculture Laborer Name Role Phone Jeannie Shrestha DO Primary Care Provider [phone] Allergies Active Allergy Reactions Criticality Noted Date Comments Bee Pollen 06/29/2020 Lactose 06/29/2020 Medications cetirizine (ZyrTEC) 10 MG tablet Take 10 mg by mouth 1 (one) time each day Active glipiZIDE (GLUCOTROL) 5 MG tablet 5 mg Take 1/2 tablet by mouth daily Active insulin glargine (LANTUS) 100 UNIT/ML injection Inject 22 Units under the skin 1 (one) time each day Active metoprolol tartrate (LOPRESSOR) 100 MG tablet Take 100 mg by mouth 2 (two) times a day Active simvastatin (ZOCOR) 10 MG tablet Take 10 mg by mouth every night Active chlorthalidone 25 MG tabletIndication s:Essential (primary) hypertension TAKE 1 TABLET BY MOUTH ONCE DAILY . APPOINTMENT REQUIRED FOR FUTURE REFILLS 30 tablet 2 Active Vitamin D, Cholecalciferol, 25 MCG (1000 UT) tablet Take by mouth Active Dapagliflozin Propanediol 10 MG tabletIndication s:Type 2 diabetes mellitus with diabetic chronic kidney disease (HCC),Stage 3b chronic kidney disease (HCC) Take 10 mg by mouth 1 (one) time each day in the morning 90 tablet 3 3 Active amLODIPine (NORVASC) 10 MG tablet Take 10 mg by mouth 1 (one) time each day 5 Active DULoxetine (CYMBALTA) [address] capsule Take 30 mg by mouth 1 (one) time each day 5 Active FLUoxetine (PROzac) 40 MG capsule Take 40 mg by mouth 1 (one) time each day 5 Active furosemide (LASIX) 20 MG tablet Take 20 mg by mouth at bed time 5 Active gabapentin (NEURONTIN) 300 MG capsule Take 300 mg by mouth at bed time 5 Active lisinopril 20 MG tablet Take 20 mg by mouth 1 (one) time each day 5 Active potassium chloride 10 MEQ CR tablet Take 10 mEq by mouth 1 (one) time each day 5 Active Cyanocobalamin (B-12) 1000 MCG tablet Take by mouth Active Active Problems Problem Noted Date Diagnosed Date Stage 3b chronic kidney disease 07/05/2020 Overview (07/31/2020): Update for Diagnosis Load Essential (primary) hypertension 07/05/2020 Type 2 diabetes mellitus wit h diabetic chronic kidney disease 07/05/2020 Dyslipidemia 07/05/2020 History of bypass of stomach 07/05/2020 Encounters Date Type Department Care Team Description 02/14/2025 Documentation Only [facility], [facility] [address] [place] [id number] CamasseHetal 02/14/2025 Documentation Only [facility] [address] [place] [phone] [place], Hetal 02/03/2025 11:00 AM CDT Office Visit [facility], [facility] [address] [place] [phone] Lorena Petersen MD Stage 3b chronic kidney disease (HCC) (Primary Dx); Type 2 diabetes mellitus with diabetic chronic kidney disease (HCC); Hypertensive chronic kidney disease with stage 1 through stage 4 chronic kidney disease, or unspecified chronic kidney disease; Secondary hyperparathyroidism of renal origin (HCC) 02/03/2025 Documentation Only [facility] [address] [place] [phone] Cambandar, Hetal 02/01/2025 Documentation Only [facility] [address] [place] [address] Starla Tracy MA 01/31/2025 Documentation Only [facility], [facility] [address] [place] [address] Starla Tracy MA 01/26/2025 Telephone [facility], [facility] [address] [place] [address] Eda Shelton MA 01/17/2025 Orders Only [facility], [facility] [address] [place] [address] CascynCynthia mooredy Stage 3b chronic kidney disease (HCC) (Primary Dx) 01/17/2025 Telephone [facility], [facility] [address] [place] [address] Lorena Petersen MD from Last 3 Months Family History Medical History Relation Comments Cancer Father Cancer Mother Diabetes Mother Heart disease Mother Hypertension Mother Kidney disease Mother Relation Status Comments Father Mother Social History Tobacco Use Types Packs/Day Years Used Date Smoking Tobacco: Never Smokeless Tobacco: Never Tobacco Cessation:Counseling Given: Not Answered Alcohol Use Standard Drinks/Week Comments Yes 0 (1 standard drink = 0.6 oz pur e alcohol) occasional Comments Unknown Sex and Gender Information Value Date Recorded Sex Assigned at Not on file Legal Sex Female 12:45 PM EDT Gender Identity Not on file Sexual Orientation Not on file Last Filed Vital Signs Vital Sign Reading Time Taken Comments Blood Pressure 132/72 02/03/2025 10:41 AM CDT Pulse 60 02/03/2025 10:41 AM CDT Temperature 36.8 C (98.2 F) 11/15/2020 2:40 PM CDT Respiratory Rate - - Oxygen Saturation - - Inhaled Oxygen Concentration - - Weight 92 kg (202 lb 12.8 oz) 02/03/2025 10:41 A M CDT Height 160 cm (5' 3 ) 02/03/2025 10:41 AM CDT Body Mass Index 35.92 02/03/2025 10:41 AM CDT Plan of Treatment Upcoming Encounters Date Type Department Care Team (Late st Contact Info) Description 08/10/2025 9:20 AM MOLD CUTTING MACHINE OPERATOR Office Visit [facility] [address] [place] [address] Lorena Petersen MD [address] [place] [address] Health Maintenance Due Date Last Done Comments Breast Cancer Screening 1960 Pneumococcal Vaccine: 50+ Ye ars (1 of 2 - PCV) 1979 Colorectal Cancer Screening: Annual FOBT 2009 Colorectal Cancer Screening: Colonoscopy 2009 Colorectal Cancer Screening: Sigmoidoscopy 2009 Diabetes: Ophthalmology Exam 07/05/2020 Diabetes: Pedal Pulse Checked 07/05/2020 Diabetes: Sensory Foot Exam 07/05/2020 Diabetes: Visual Foot Exam 07/05/2020 Diabetes: Hemoglobin A1C 09/25/2020 06/27/2020 Influenza Vaccine (#1) 2025 Hepatitis B Vaccine Aged Out No longe r eligible based on patient's age to complete this topic Procedures Procedure Name Priority Date/Time Associated Diagnosis Comments BASIC METABOLIC PANEL (BMP) (EXTERNAL LAB ENTRY) Routine 02/08/2025 8:25 AM CDT PROTEIN / CREATININE RATIO, URINE Routine 01/27/2025 8:13 AM CDT Stage 3b chronic kidney disease (HCC) RENAL FUNCTION PANEL Routine 01/27/2025 8:13 AM CDT Stage 3b chronic kidney disease (HCC) CBC Routine 01/27/2025 8:13 AM CDT Stage 3b chronic kidney disease (HCC) HEMOGLOBIN A1C (EXTERNAL RESULT ENTRY) Routine 06/27/2020 9:17 AM MOLD CUTTING MACHINE OPERATOR from Last 3 Months or Most Recently Relevant to Health Maintenance Results * Basic Metabolic Panel (BMP) (02/08/2025 8:25 AM CDT) Sodium 139 mEq/L Potassium 5.3 mEq/L Chloride 103 Carbon Dioxide 22 mmol/L Calcium 9.0 mg/dL BUN 22 mg/dL Creatinine 1.3 mg/dL Glucose 319 mg/dL eGFR Non-Afr Kittitian 41.2 02/08/2025 8:25 AM CDT Narrative Hetal Silva - 02/14/2025 1:58 PM CDT [facility] [address] [place], [place] [id number] Dr. Reed Freitas, Third Cook Historical Provider LAB BLOOD ORDERABLES Jonna l Result * Protein, Total, Random Urine w/Creatinine (Protein/Creat Ratio) (01/27/2025 8:13 AM CDT) Pathologist [facility] Protein Urine Random 142.9 PRINT/EXTERNAL (NON-INTERFACE D LABS) Urine Urine specimen obtained by clean catch procedure / Unknown 01/27/2025 8:13 AM CDT Narrative PRINT/EXTERNAL (NON-INTERFACED LABS) - 01/31/2025 4:24 PM CDT [facility] [address] [place] [address] [address] [address] Reed Freitas, Third Cook Lorena Petersen MD LAB URINE ORDERABLES Final Re sult PRINT/EXTERNAL (NON-INTERFACED LABS) * CBC (01/27/2025 8:13 AM CDT) Pathologist [facility] WBC 9.56 K/uL PRINT/EXTE RNAL (NON-INTERFACE D LABS) Red Blood Cell Count 4.31 PRINT/EXTERNAL (NON-INTERFACE D LABS) Hemoglobin 12.30 g/dL PRINT/EXT ERNAL (NON-INTERFACE D LABS) Hematocrit 37.6 % PRINT/EXT ERNAL (NON-INTERFACE D LABS) MCV 87.2 PRINT/EXTE RNAL (NON-INTERFACE D LABS) MCH 28.5 PRINT/EXTE RNAL (NON-INTERFACE D LABS) MCHC 32.7 PRINT/EXTE RNAL (NON-INTERFACE D LABS) RDW 14.3 PRINT/EXTE RNAL (NON-INTERFACE D LABS) Platelet Count 238.0 PRINT /EXTERNAL (NON-INTERFACE D LABS) MPV 10.6 PRINT/EXTE RNAL (NON-INTERFACE D LABS) Absolute Neutrophils 4.98 PRINT/EXTERNAL (NON-INTERFACE D LABS) Absolute Lymphocytes 3.6 PRINT/EXTERNAL (NON-INTERFACE D LABS) Absolute Monocytes 0.7 PRINT/EXTERNAL (NON-INTERFACE D LABS) Absolute Eosinophils 0.2 PRINT/EXTERNAL (NON-INTERFACE D LABS) Absolute Basophils 0.0 PRINT/EXTERNAL (NON-INTERFACE D LABS) Neutrophils 52.2 K/uL PRINT/EX TERNAL (NON-INTERFACE D LABS) Lymphocytes 37.4 PRINT/EX TERNAL (NON-INTERFACE D LABS) Monocytes 7.4 PRINT/EXTE RNAL (NON-INTERFACE D LABS) Eosinophils 2.4 PRINT/EX TERNAL (NON-INTERFACE D LABS) Basophils 0.4 PRINT/EXTE RNAL (NON-INTERFACE D LABS) Blood Venous blood / Unknown 01/27/2025 8:13 AM CDT Narrative PRINT/EXTERNAL (NON-INTERFACED LABS) - 01/31/2025 4:24 PM CDT [facility] [address] [place] [address] Dr. Reed Freitas, Third Cook us Lorena Petersen MD LAB BLOOD ORDERABLES Final Re sult PRINT/EXTERNAL (NON-INTERFACED LABS) * Renal Function Panel (01/27/2025 8:13 AM CDT) Glucose 127.0 mg/dL PRINT/EXTE RNAL (NON-INTERFACE D LABS) BUN 35.0 mg/dL PRINT/EXTE RNAL (NON-INTERFACE D LABS) Creatinine 1.8 mg/dL PRINT/EXT ERNAL (NON-INTERFACE D LABS) Sodium 136 mEq/L PRINT/EXTE RNAL (NON-INTERFACE D LABS) Potassium 4.5 mEq/L PRINT/EXTE RNAL (NON-INTERFACE D LABS) Chloride 102.0 PRINT/EXTE RNAL (NON-INTERFACE D LABS) Carbon Dioxide 21.0 mmol/L PRINT /EXTERNAL (NON-INTERFACE D LABS) Calcium 8.5 mg/dL PRINT/EXTE RNAL (NON-INTERFACE D LABS) Phosphorus, Serum 4.2 mg/dL PRINT/EXTERNAL (NON-INTERFACE D LABS) Albumin (Blood) 4.0 g/dL PRIN T/EXTERNAL (NON-INTERFACE D LABS) eGFR 28.3 PRINT/EXTE RNAL (NON-INTERFACE D LABS) Blood Venous blood / Unknown 01/27/2025 8:13 AM CDT Narrative PRINT/EXTERNAL (NON-INTERFACED LABS) - 01/31/2025 4:24 PM CDT [facility] [address] [place] [id number] [address] Reed Freitas, Third Cook us Lorena Petersen MD LAB BLOOD ORDERABLES Final Re sult PRINT/EXTERNAL (NON-INTERFACED LABS) * Hemoglobin A1C (06/27/2020 9:17 AM MOLD CUTTING MACHINE OPERATOR) Hemoglobin A1C 7.8 Blood specimen (specimen) Venous blood / Unknown 06/27/2020 9:17 AM MOLD CUTTING MACHINE OPERATOR Osvaldo Radha Colindres CHELLY - 07/05/2020 2:14 PM MOLD CUTTING MACHINE OPERATOR New pt lab [facility] [address] [place] [address] us Jeannie Shrestha DO LAB BLOOD ORDERABLES Final R esult from Last 3 Months or Most Recently Relevant to Health Maintenance Insurance [employer] ([id number]) [place] S[place]QUI [id number] Care Teams Agriculture Laborer Relationship Specialty Start Date End Date Jeannie Shrestha DO PCP - General Family Medicine 07/05/20
--- OUTSIDE RECORDS SUMMARY | 2025-03-23 05:22 | XMS_ITS | Encounter Summary ---
Author Organization [facility] Address [address] [address] Phone Care Team Providers Care Hand Spring Repairer Name Role Phone Jeannie Shrestha DO Primary Care Provider [phone] Reason for Visit * Reason Comments Med Refill Encounter Details Date Type Department Care Team (Late st Contact Info) Description 03/29/2022 Refill [facility], [facility] [address] [place] [address] Lisandra Levin NP [address] [address] Essential (primary) hypertension Social History Tobacco Use Types Packs/Day Years Used Date Smoking Tobacco: Never Smokeless Tobacco: Never Alcohol Use Standard Drinks/Week Comments Yes 0 [...] st Contact Info) Description 08/10/2025 9:20 AM HORSE TRAINER Office Visit [facility] [address] [place] [address] Lorena Petersen MD [address] [address] documented as of this encounter Visit Diagnoses Diagnosis Essential (primary) hypertension documented in this encounter Care Teams Hand Spring Repairer Relationship Specialty Start Date End Date Jeannie Shrestha DO PCP - General Family Medicine 07/05/20 documented as of this encounter
--- NOTE | 2025-03-23 06:05 | W.ED.SKABFB ---
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 She has been cleansing the lesion twice daily with sterile water, applying a dry sponge and large Band-Aid as instructed by dermatology. Over the last few days she reports increased itching across the forehead and pain radiating to the temples and beneath the lesion. When she removed the dressing this evening she observed bleeding and multiple bugs, prompting ED evaluation. Prior CT (performed Friday) revealed two enlarged lymph nodes and a possible throat lesion; dermatology has recommended a PET scan. She is scheduled for wide local excision and possible plastic surgery reconstruction in [place]. Denies fever, systemic symptoms, or other wound drainage. Related Data Home Medications ?Medication ?Instructions ?Recorded ?Confirmed gabapentin 300 mg capsule 300 mg PO BEDTIME PRN nerve pain 12/27/24 03/15/25 Previous Rx's ?Medication ?Instructions ?Recorded cetirizine 10 mg tablet 10 mg PO DAILY #30 tabs 02/15/20 simvastatin 10 mg tablet 10 mg PO DAILY #30 tabs 03/26/24 tramadol 50 mg tablet 50 mg PO Q4H PRN pain #20 tabs 09/30/24 dapagliflozin propanediol 10 mg 10 mg PO DAILY #90 tabs 11/23/24 tablet (Farxiga) glyburide 2.5 mg tablet 2.5 mg PO DAILY #90 tabs 11/23/24 metoprolol tartrate 100 mg tablet 100 mg PO BID #180 tabs 11/23/24 amlodipine 10 mg tablet (Norvasc) 10 mg PO QDAY #30 tabs 01/20/25 furosemide 20 mg tablet 20 mg PO .qPM #90 tabs 01/20/25 potassium chloride 10 mEq 10 meq PO DAILY #90 tabs 01/20/25 tablet,extended release hydralazine 10 mg tablet 10 mg PO TID #90 tabs 02/08/25 insulin glargine 100 unit/mL (3 42 unit (0.42 mL) SUBCUT QAM 90 02/08/25 mL) subcutaneous pen (Lantus days #37.8 mL Solostar U-100 Insulin) duloxetine 60 mg capsule,delayed 60 mg PO DAILY #30 caps 02/16/25 release gabapentin 100 mg capsule 200 mg (2 x 100 mg) PO .HS #60 caps 02/16/25 lisinopril 20 mg tablet 30 mg (1.5 x 20 mg) PO DAILY #135 03/15/25 tabs Allergies Allergy/AdvReac Type Severity Reaction Status Date / Time bee pollen Allergy Unknown Verified 03/15/25 07:44 lactose Allergy Unknown Verified 03/15/25 07:44 PFS ED PFSH: Medical History (Updated 03/23/25 @ 06:17 by Trever Petersen MD) Psychiatric care Cataract Obesity (BMI 35.0-39.9 without comorbidity) URI with cough and congestion History of 2019 novel coronavirus disease (COVID-19) Tachycardia Stage 3b chronic kidney disease Benign essential HTN Hyperlipidemia Type 2 diabetes mellitus with diabetic nephropathy, with long-term current use of insulin Surgical History H/O esophagogastroduodenoscopy (04/06/20) Status post colonoscopy (04/06/20) repeat in 10 yrs Hx of gastric bypass Hx of hysterectomy Hx of dilation and curettage Status post cervical spinal fusion 07/29/2019 Dr. River Whipple. C5-C6 ACDFF Family History Mother Diabetes Cancer Heart disease Father Cancer Social History Smoking and tobacco/nicotine status: never used tobacco/nicotine Alcohol intake: current Alcohol intake frequency: holidays/special occasions only Substance/Drug Use: never Lives independently: Yes Household members: none and other Details: roommate Marital status: service: No Current occupational status: employed Current occupation: [employer] Physical Exam HENMT: OTHER: Skin: Approximately 3.5?4 cm cavitating lesion mid-forehead containing numerous live maggots; no active bleeding or purulence. Surrounding skin appears clean without erythema. General: Alert, cooperative, mildly tearful, no acute distress. Procedures Foreign Body Removal Time Out Performed: yes Site: face Description of foreign body: other (maggots) Sedation/Analgesia: none Technique: removal with forceps, irrigation and other (suction) Complications: none Course Vital Signs: Vital signs: Vital Signs Pulse Rate 71 03/23/25 05:22 Respiratory Rate 18 03/23/25 05:22 Blood Pressure 152/70 03/23/25 05:22 Pulse Oximetry 100 03/23/25 05:22 Oxygen Delivery Me thod Room Air 03/23/25 05:22 MDM - Skin/Abscess/Foreign Bdy Medicial Decision Making The patient presents with a maggot-infested squamous cell carcinoma wound of the forehead, reporting increased pruritus, pain, and minor bleeding after dressing removal. Physical exam shows a 3.5?4 cm cavitating forehead lesion with visible larvae but no purulence or active bleeding. Recent CT head/neck demonstrated two suspicious lymph nodes and a possible throat lesion. Differential diagnosis centers on wound maggot infestation versus superimposed infection; no signs of cellulitis or systemic infection noted, so simple debridement deemed sufficient. Plan: Gentle removal of larvae using irrigation, suction, and forceps; sterile wound irrigation; Continue twice-daily cleansing and dry dressing. Await PET scan and planned wide local excision with possible plastic surgery in [place]. Patient reassured and advised to follow dermatology/oncology instructions. No radiology studies performed this visit Discharge Plan Discharge Patient Disposition: Home Clinical Impression: Maggot infestation Condition: Stable Prescriptions: No Action simvastatin 10 mg tablet 10 mg PO DAILY Qty: 30 5RF dapagliflozin propanediol [Farxiga] 10 mg tablet 10 mg PO DAILY Qty: 90 1RF glyburide 2.5 mg tablet 2.5 mg PO DAILY Qty: 90 1RF metoprolol tartrate 100 mg tablet 100 mg PO BID Qty: 180 1RF amlodipine [Norvasc] 10 mg tablet 10 mg PO QDAY Qty: 30 2RF furosemide 20 mg tablet 20 mg PO .qPM Qty: 90 1RF Rx Instructions: night custodian potassium chloride 10 mEq tablet extended release 10 meq PO DAILY Qty: 90 1RF Lantus Solostar U-100 Insulin 100 unit/mL (3 mL) insulin pen 42 unit SUBCUT QAM 90 Days Qty: 37.8 0RF Rx Instructions: May give up to 50u per day hydralazine 10 mg tablet 10 mg PO TID Qty: 90 0RF duloxetine 60 mg capsule,delayed release(DR/EC) 60 mg PO DAILY Qty: 30 2RF gabapentin 100 mg capsule 200 mg PO .HS Qty: 60 2RF lisinopril 20 mg tablet 30 mg PO DAILY Qty: 135 1RF cetirizine 10 mg tablet 10 mg PO DAILY Qty: 30 5RF tramadol 50 mg tablet 50 mg PO Q4H PRN (Reason: pain) Qty: 20 0RF gabapentin 300 mg capsule 300 mg PO BEDTIME PRN (Reason: nerve pain) Discharge Orders: Discharge ED (Routine); Ordered 03/23/25 Ordered By: Trever Petersen Referrals: Jeannie Shrestha DO [Primary Care Provider, [facility]] Discharge Diet: Usual diet Discharge Activity: Resume usual activity Patient Instructions: Patient Portal & [place] Instructions Activity Restrictions/Additional Instructions: As we discussed, maggots have traditionally been used to clean wounds thus they have not caused you any harm. If they reappear, you are always welcome back in the emergency department for them to be removed. Please follow-up with your multiple specialists for definitive management of your squamous cell carcinoma as previously planned. Print Language: Thai Coding Level of Care Code ED Blank Driller for Guille Nolasco
[2025-03-23 06:20] VITALS: BP 152/70; PULSE 62; RESP 16; O2SAT 100
== END 2025-03-23 06:28 | disposition home or self-care (01) ==
PROVIDERS: Emergency Provider Student in an Organized Health Care Education/Training Program; PCP Family Medicine
DX: B87.0 Cutaneous myiasis (principal); C44.329 Squamous cell carcinoma of skin of other parts of face; E11.22 Type 2 diabetes mellitus with diabetic chronic kidney disease; I12.9 Hypertensive chronic kidney disease with stage 1 through stage 4 chronic kidney disease, or unspecified chronic kidney disease; N18.32 Chronic kidney disease, stage 3b; E78.5 Hyperlipidemia, unspecified
CPT/HCPCS: 99282

== ENCOUNTER 2025-03-25 13:44 | Outpatient (CLI) | payer OTHER, SELFPAY ==
[2025-01-25 12:06] VITALS: BP 153/73; BMI 36.8
--- NOTE | 2025-03-25 14:00 | PETR_ITS ---
PROCEDURE INFORMATION: Exam: PET/CT Skull Base to Mid-thigh Exam date and time: 03/25/2025 2:44 PM Age: 64 years old Clinical indication: Symptoms: Localized enlarged lymph nodes LABS AND CLINICAL REPORTS: Glucose: 200 mg/dl Treatment strategy for malignancy (PET staging): Initial Staging (PI) TECHNIQUE: Imaging protocol: Following at least four-hour fasting and following the injection of radiopharmaceutical, low dose CT images were obtained. Then, PET images were obtained. Attenuation corrected images were constructed using the CT scan. Fused images of PET and CT were reviewed. The standardized uptake values (SUV) reported below are maximum values within a region of interest, expressed in gm/ml. Exam includes orbital meatal line to mid-thigh. SUV normalization method: BodyWeight Radiopharmaceutical: 13.34 mCi F-18 FDG (Fluorodeoxyglucose), IV. Time of imaging post radiopharmaceutical administration: 45 minutes Injection site: LAC COMPARISON: CT neck w con* [id number] 03/18/2025 1:42 PM FINDINGS: Brain: Visualized brain has normal physiologic uptake. Salivary glands: Multiple bilateral parotid gland nodules without significant increased metabolic activity. Pharynx: No abnormal uptake. Larynx: No abnormal uptake. Lungs, pleura and trachea: No abnormal uptake. Heart: Normal physiologic uptake. Mediastinal space: No abnormal uptake. Liver: No abnormal uptake. Gallbladder and biliary ducts: No abnormal uptake. Cholelithiasis without cholecystitis. Pancreas: No abnormal uptake. Spleen: No abnormal uptake. Adrenal glands: No abnormal uptake. Kidneys and ureters: Normal physiologic uptake. Stomach and bowel: No abnormal uptake. There has been a gastric bypass surgical procedure. Reproductive: Status post hysterectomy and bilateral oophorectomy. No abnormal uptake of the surgical bed. Vasculature: No abnormal uptake. Lymph nodes: Mildly prominent left level 2a lymph node, 1.2 cm in long axis. No associated abnormal metabolic activity. Overall, size of previously noted enlarged lymph nodes has decreased. No abnormal lymph node uptake. Skeleton: No abnormal uptake in the visualized axial and appendicular skeleton. Soft tissues: Skin thickening and irregularity with increased FDG uptake along the frontal scalp, maximum SUV 6.9. METRICS: Mediastinal blood pool: Mean SUV of 2.3 Liver uptake: Mean SUV of 2.4 PET/PET skull to thigh INIT [id number] IMPRESSION: 1. FDG avid frontal scalp skin thickening and irregularity (SUV max 6.9), consistent with known primary squamous cell carcinoma of the skin. 2. Overall decrease in size of previously noted enlarged left-sided upper neck lymphadenopathy. There is no abnormal dustin uptake. 3. Multiple bilateral parotid gland nodules without significant increased metabolic activity. 4. No functional or anatomic evidence of metastatic disease.
== END 2025-03-25 13:45 | disposition home or self-care (01) ==
PROVIDERS: PCP Family Medicine; Visit Provider Dermatology
DX: R59.0 Localized enlarged lymph nodes (principal); K11.8 Other diseases of salivary glands
CPT/HCPCS: 78815; A9552

== ENCOUNTER → 2025-04-21 08:24 | Outpatient (BNVA) | payer OTHER, SELFPAY ==
[2025-01-25 12:06] VITALS: BP 153/73; BMI 36.8
== END ==
PROVIDERS: PCP Family Medicine; Visit Provider Family Medicine
DX: E11.21 Type 2 diabetes mellitus with diabetic nephropathy (principal); Z79.4 Long term (current) use of insulin
CPT/HCPCS: 80053; 83036

== ENCOUNTER 2025-05-26 13:43 | Oncology outpatient (recurring) (ONCR) | payer OTHER, SELFPAY ==
[2025-01-25 12:06] VITALS: BP 153/73; BMI 36.8
--- NOTE | 2025-05-26 14:39 | N.ONRAD NP_ITS ---
Radiation Oncology New Patient Visit Patient: Iris Chaney MR#: [id number] : 1960 Age: 65 Sex: Female Dictated by: Dr. Lorena Cruz Date of Service: 05/26/2025 Referring Physician(s) : Dr. 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 Chief Complaint / History of Present Illness: Patient describes how a year and a half ago she fell and hit her head on her metal cup which had a plastic lid. She apparently lost consciousness at that time. She subsequently had stitches and had to heal from that but found that there was something underneath the skin. At 1 point she was able to extract a piece of plastic from her forehead. This slowly progressed since November when the area became larger and more ulcerated and she was even placed on antibiotics and sent to wound care for what was thought to be just an injury from the embedded plastic. Finally she had a biopsy done and it was found to be a squamous cell carcinoma that had become ulcerated with raised rolled edges based on her picture. She has had this surgically removed and is here today to discuss postoperative radiation. She also had neck dissection which did not reveal any adenopathy. She has had a PET scan that did not show any evidence of metastatic disease. Current Medications: amlodipine (Norvasc) 10 mg PO QDAY cetirizine 10 mg PO DAILY dapagliflozin propanediol (Farxiga) 10 mg PO DAILY docusate sodium (Colace Clear) 50 mg PO BID duloxetine 60 mg PO DAILY furosemide 20 mg PO .qPM gabapentin 100 mg PO .HS glyburide 2.5 mg PO DAILY hydralazine 50 mg PO TID hydrocodone-acetaminophen 5-325 mg 1 tab PO Q8H PRN insulin glargine (Lantus Solostar U-100 Insulin) 42 units (0.42 mL) SUBCUT QAM 90 days lisinopril 30 mg (1.5 x 20 mg) PO DAILY metoprolol tartrate 25 mg PO BID potassium chloride ER 10 mEq PO DAILY prazosin 5 mg PO .HS simvastatin 10 mg PO DAILY tramadol 50 mg PO Q4H PRN 7 days Allergies: bee pollen Allergy (Verified 05/10/25 09:05) Unknown lactose Allergy (Verified 05/10/25 09:05) Unknown Medical History: No history of collagen vascular disease. No previous radiation therapy. Cataract Obesity (BMI 35.0-39.9 without comorbidity) URI with cough and congestion History of 2019 novel coronavirus disease (COVID-19) Tachycardia Stage 3b chronic kidney disease Benign essential HTN Mixed hyperlipidemia Type 2 diabetes mellitus with diabetic nephropathy, with long-term current use of insulin Surgical History: H/O esophagogastroduodenoscopy (04/06/20) Status post colonoscopy (04/06/20) repeat in 10 yrs Hx of gastric bypass Hx of hysterectomy Hx of dilation and curettage Status post cervical spinal fusion 07/29/2019 Dr. River Whipple. C5-C6 ACDFF Family History: Mother Diabetes Cancer Heart disease Father Cancer Social History: Smoking and tobacco/nicotine status: never used tobacco/nicotine Alcohol intake: current Alcohol intake frequency: holidays/special occasions only Substance/Drug Use: never Lives independently: Yes Household members: none and other Details: roommate Marital status: service: No Current occupational status: employed Current occupation: [employer] Current Complaints / Review of Systems: . Vital Signs: Performed on 05/26/2025 1:57 PM BMI - 37.023 kg/m2 (high), Height - 63 in, Weight - 209 lbs, Temperature - 97.5 f, Pulse - 91 /min, Respiration - 17 /min, O2 Sat - 99 %, Pain - 0, Fatigue - 0 and BP - 182/ 84 mm(hg)(high/). Physical Exam: General: Patient is sitting comfortably in her chair. HEENT: Pupils are equal round reactive to light, extraocular muscles intact, sclera clear. Her forehead has a perfectly circular graft which of course is a different color than her surrounding skin. It is fairly raised but appears to be nicely healed there is no signs of erythema or drainage or infection Pulmonary: Respiratory rate is regular nonlabored Cardiovascular: Regular rate and rhythm Abdomen: Moderately protuberant android pattern Extremities: Without obvious edema or lymphedema Skin: Warm and dry Neurological: Alert and orient x 3. Gait and speech within normal limits Psych: Affect appropriate for current situation Performance Status: 100 Pathology: Lab: Imaging: See HPI Impression: Grade 3 squamous of carcinoma of the skin with a close deep margin Plan: We reviewed how the circumstances of the skin cancer were quite unusual with the plastic being embedded in the area. We reviewed the role of radiation and skin cancer. At this point we talked about the surgery that she had. We talked about how the radiation would be given to prevent recurrence. The danger with having a graft is that any recurrence will not show itself for quite some time because it is under the graft. We talked about the simulation process. We talked about the risks and side effects of the radiation both acute and long-term. At this point she is a good understanding of this. She is not quite a month out from her surgery. I recommended we give her another couple 3 weeks to heal and then we can proceed with simulation and begin her treatment shortly thereafter. Plan would be to proceed with 20 treatments at 275 cGy for total of 55 [place]. Signed by: 05/26/2025 2:37:50 PM <<Signature on File>> Time spent with patient:35 CPT Code: CPT Code:
== END 2025-05-27 23:59 | disposition home or self-care (01) ==
LOC: ONCMED 13:45
PROVIDERS: PCP Family Medicine; Visit Provider Radiology Radiation Oncology
DX: C44.329 Squamous cell carcinoma of skin of other parts of face (principal)
CPT/HCPCS: 99204

== ENCOUNTER 2025-05-30 09:00 | Outpatient (CLI) | payer OTHER, SELFPAY ==
[2025-01-25 12:06] VITALS: BP 153/73; BMI 36.8
--- NOTE | 2025-05-30 09:00 | MM_ITS ---
WS: [id number] BILATERAL SCREENING DIGITAL TOMOSYNTHESIS MAMMOGRAM WITH CAD HISTORY: screening COMPARISON: 11/05/2018 Bilateral CC and MLO views with tomosynthesis and synthetic mammography submitted. Computer aided detection analyzed. Breast composition: There are scattered areas of fibroglandular density. No suspicious masses, microcalcifications or architectural distortion. Benign scattered calcifications within each breast. MM/MM scr BI tomosynthesis [id number] IMPRESSION: BI-RADS: 2 - Benign. FOLLOW UP: 1 Year Follow-up
== END 2025-05-30 09:01 | disposition home or self-care (01) ==
LOC: RAD 09:02
PROVIDERS: PCP Family Medicine; Visit Provider Family Medicine
DX: Z12.31 Encounter for screening mammogram for malignant neoplasm of breast (principal); R92.323 Mammographic fibroglandular density, bilateral breasts; R92.1 Mammographic calcification found on diagnostic imaging of breast
CPT/HCPCS: 77063; 77067

== ENCOUNTER 2025-07-27 08:20 | Oncology outpatient (recurring) (ONCR) | payer OTHER, SELFPAY ==
[2025-01-25 12:06] VITALS: BP 153/73; BMI 36.8
--- NOTE | 2025-07-12 08:37 | ONCRAD TMN_ITS ---
Radiation Oncology Weekly Treatment Management Patient: Shiv Simmons> MR#: [id number] : 1960> Attending Physician: Reuben Springer Date of Service: 07/12/2025 Referring Physician(s) : Dr. Meier Diagnosis: C44.320 - Squamous cell carcinoma of skin of unspecified parts of face, Diagnosed 05/26/2025 (Active) Radiotherapy to date: Course: Forehead, Treatment Site: [id number], Ref. ID: [id number], Energy: 6E, Dose/Fx (cGy): 275, #Fx: 2 / 20, Dose Correction (cGy): 0, Total Dose Delivered (cGy): 550, Start Date: 07/11/2025, Elapsed Days: 1 Reason for visit: The patient is being seen today as part of their regularly scheduled weekly on treatment visits to assess for acute toxicities from radiotherapy. Review of Systems: Patient is here for the second day of treatment. We will jocelynn edges of the treatment field on the patient tomorrow. At this time and only outlines the noticeable skin graft. Advised to continue using creams liberally after treatment each day Vital Signs: Performed on 07/12/2025 8:16 AM BMI - 38.405 kg/m2 (high), Height - 63 in, Weight - 216.8 lbs, Temperature - 96.2 f, Pulse - 67 /min, Respiration - 18 /min, O2 Sat - 99 %, Pain - 0, Fatigue - 0 and BP - 181/ 80 mm(hg)(high/). Physical Exam: AAOx3. Skin graft intact. No erythema Imaging: Radiation therapy imaging related to accurate target localization (i.e. KV, MV and CBCT) was reviewed. Appropriate changes, if any, were made to ensure treatment accuracy. Plan: Continue XRT. Utilize creams liberally. I outlined treatment portal on skin tomorrow and going forward. Signed by: Reuben Springer 07/12/2025 8:35:58 AM
--- NOTE | 2025-07-19 08:34 | ONCRAD TMN_ITS ---
Radiation Oncology Weekly Treatment Management Patient: Iris Chaney MR#: [id number] : 1960> Attending Physician: Reuben Springer Date of Service: 07/19/2025 Referring Physician(s) : Dr. Meier Diagnosis: C44.320 - Squamous cell carcinoma of skin of unspecified parts of face, Diagnosed 05/26/2025 (Active) Radiotherapy to date: Course: Forehead, Treatment Site: [id number], Ref. ID: [id number], Energy: 6E, Dose/Fx (cGy): 275, #Fx: 7 / 20, Dose Correction (cGy): 0, Total Dose Delivered (cGy): 1,925, Start Date: 07/11/2025, Elapsed Days: 8 Reason for visit: The patient is being seen today as part of their regularly scheduled weekly on treatment visits to assess for acute toxicities from radiotherapy. Review of Systems: No voiced complaints. Edge of treatment portal is gone. Skin graft with less bulk. Patient using Eucerin cream 3 times a day. Vital Signs: Performed on 07/19/2025 7:45 AM BMI - 38.298 kg/m2 (high), Height - 63 in, Weight - 216.2 lbs, Temperature - 97.2 f, Pulse - 74 /min, Respiration - 17 /min, O2 Sat - 100 %, Pain - 0, Fatigue - 0 and BP - 166/ 81 mm(hg)(high/). Physical Exam: AAOx3. Skin intact. Graft with less bulk. Imaging: Radiation therapy imaging related to accurate target localization (i.e. KV, MV and CBCT) was reviewed. Appropriate changes, if any, were made to ensure treatment accuracy. Plan: Continue XRT Continue liberal use of creams. Signed by: Reuben Springer 07/19/2025 8:32:54 AM
--- NOTE | 2025-07-26 08:28 | ONCRAD TMN_ITS ---
Radiation Oncology Weekly Treatment Management Patient: Iris Chaney MR#: [id number] : 1960 Attending Physician: Reuben Springer Date of Service: 07/26/2025 Referring Physician(s) : Dr Meier Diagnosis: C44.320 - Squamous cell carcinoma of skin of unspecified parts of face, Diagnosed 05/26/2025 (Active) Radiotherapy to date: Course: Forehead, Treatment Site: [id number], Ref. ID: [id number], Energy: 6E, Dose/Fx (cGy): 275, #Fx: , Dose Correction (cGy): 0, Total Dose Delivered (cGy): 2,750, Start Date: 07/11/2025, End Date: 07/26/2025, Elapsed Days: 15 Reason for visit: The patient is being seen today as part of their regularly scheduled weekly on treatment visits to assess for acute toxicities from radiotherapy. Review of Systems: Patient using creams liberally. The central part of the skin graft still remains slightly puffy. There is mild erythema around the edges of the graft portal Vital Signs: Performed on 07/26/2025 8:22 AM BMI - 37.767 kg/m2 (high), Height - 63 in, Weight - 213.2 lbs, Temperature - 96 f, Pulse - 65 /min, Respiration - 17 /min, O2 Sat - 97 %, Pain - 0, Fatigue - 0 and BP - 154/ 76 mm(hg)(high/). Physical Exam: AA O x 3. Skin intact. Central puffiness remains with the skin graft with erythema that is mild in the treatment portal. Imaging: Radiation therapy imaging related to accurate target localization (i.e. KV, MV and CBCT) was reviewed. Appropriate changes, if any, were made to ensure treatment accuracy. Plan: Continue XRT. Continue liberal cream applications. Signed by: Reuben Springer 07/26/2025 8:27:36 AM
== END 2025-07-27 23:59 | disposition home or self-care (01) ==
PROVIDERS: PCP Family Medicine; Visit Provider Radiology Radiation Oncology
DX: Z51.0 Encounter for antineoplastic radiation therapy (principal); C44.329 Squamous cell carcinoma of skin of other parts of face
CPT/HCPCS: 77280; 77290; 77321; 77334; 77336; 77412